=== PATIENT | male | born 1950 | race Caucasian/White ===

== ENCOUNTER 2017-09-06 02:55 | Emergency (ER) | payer MEDICAID, MEDICARE ==
[~2017-09-06] VITALS: Ht 177.8 cm; Wt 115.0 kg
[2017-09-06 04:49] VITALS: BP 128/74; PULSE 94; RESP 20; TEMP 98.5; O2SAT 95
[2017-09-07] MEDS ORDERED: ALPR.5 PO (15:25)
[2017-09-07] MEDS ORDERED: ASPI-516 CHEW (15:25)
[2017-09-07] MEDS ORDERED: NEUR300C PO (15:25)
[2017-09-07] MEDS ORDERED: SEVEL800 PO ×2 (15:25)
[2017-09-07] MEDS ORDERED: FAMO1TAB73 PO (15:25)
[2017-09-07] MEDS ORDERED: PERC5TAB12 PO (15:26)
== END 2017-09-06 03:00 | disposition home or self-care (01) ==
LOC: NEPE 02:55
DX: T80.89XA Other complications following infusion, transfusion and therapeutic injection, initial encounter (principal)
CPT/HCPCS: 99281

== ENCOUNTER 2017-09-06 07:14 | Emergency (ER) | payer MEDICARE ==
[~2017-09-06] VITALS: Ht 177.8 cm; Wt 130.0 kg
[2017-09-06 07:24] VITALS: BP 121/72; PULSE 93; RESP 16; O2SAT 94
--- NOTE | 2017-09-06 07:37 | PD ---
HPI Chief Complaint: Hide Paster Problem Time Seen by Provider: 07:22 Travel History International Travel<30 days: No Contact w/Intl Traveler<30days: No Traveled to known affect area: No History of Present Illness HPI 67-year-old male complains of bleeding from AV fistula site on the left arm. Patient has history of end-stage renal disease on dialysis. Patient states that he started having bleeding from the left arm since yesterday. Patient was seen in emergency room last night. Dressing was applied and patient was discharged. Patient went to dialysis morning and started having bleeding from the left arm again. Patient was sent to ED for evaluation. [facility] Past Medical History Anemia: Yes Diabetes: Yes Patient Takes Glucophage: Yes Hepatitis: Yes (C) Implanted Vascular Access Dvce: Yes Immunizations Current: Yes Renal Failure: Yes Tetanus Vaccination: Unknown Influenza Vaccination: Yes Social History Alcohol Use: No Tobacco Use: No Substance Use: No Allergies-Medications (Allergen,Severity, Reaction): Coded Allergies: No Known Allergies (Unverified , 09/06/17) Review of Systems General / Constitutional: No: Fever Eyes: No: Visual changes HENT: No: Headaches Cardiovascular: No: Chest Pain or Discomfort Respiratory: No: Shortness of Breath Gastrointestinal: No: Abdominal Pain Genitourinary: No: Dysuria Musculoskeletal: No: Pain Skin: No Rash Neurologic: No: Weakness Psychiatric: No: Depression Endocrine: No: Polydipsia Hematologic/Lymphatic: No: Easy Bruising Physical Exam Narrative GENERAL: Well-nourished, well-developed patient. SKIN: Focused skin assessment warm/dry. HEAD: Normocephalic. EYES: No scleral icterus. No injection or drainage. NECK: Supple, trachea midline. No JVD or lymphadenopathy. CARDIOVASCULAR: Regular rate and rhythm without murmurs, gallops, or rubs. RESPIRATORY: Breath sounds equal bilaterally. No accessory muscle use. GASTROINTESTINAL: Abdomen soft, non-tender, nondistended. MUSCULOSKELETAL: Patient has a small hole with minor bleeding at the left arm AV fistula site. BACK: Nontender without obvious deformity. No CVA tenderness. Neurologic exam normal. Data Data Last Documented VS Vital Signs Date Time Temp Pulse Resp B/P (MAP) Pulse Ox O2 Delivery O2 Flow Rate FiO2 09/06/17 07:24 92 16 95 Room Air 09/06/17 07:24 121/72 (88) [facility] Medical Decision Making Medical Screen Exam Complete: Yes Emergency Medical Condition: Yes Differential Diagnosis Differential diagnosis including bleeding from AV fistula site. Narrative Course 67-year-old male with bleeding from AV fistula site on the left arm. History of end-stage renal disease on dialysis. Procedures Procedure Narrative WoundSeal powder applied to the site. Bleeding stopped. Diagnosis Primary Impression: Hemorrhage of arteriovenous fistula Qualified Codes: T82.838A - Hemorrhage due to vascular prosthetic devices, implants and grafts, initial encounter Patient Instructions: General Instructions Additional Instructions: Follow-up with personal physician. Med/Other Pt SpecificInfo: No Change to Meds Disposition: 01 DISCHARGE HOME Condition: Stable Adrián Rosa MD Sep 06, 2017 07:37
[2017-09-06] MEDS ORDERED: ONDANSETRON ODT 4 MG TAB PO ONE (08:00)
[2017-09-07] MEDS ORDERED: SEVEL800 PO ×2 (15:25)
[2017-09-07] MEDS ORDERED: FAMO1TAB73 PO (15:25)
[2017-09-07] MEDS ORDERED: ALPR.5 PO (15:25)
[2017-09-07] MEDS ORDERED: NEUR300C PO (15:25)
[2017-09-07] MEDS ORDERED: ASPI-516 CHEW (15:25)
[2017-09-07] MEDS ORDERED: PERC5TAB12 PO (15:26)
== END 2017-09-06 08:29 | disposition home or self-care (01) ==
LOC: NEPC 07:14
DX: T82.838A Hemorrhage due to vascular prosthetic devices, implants and grafts, initial encounter (principal); N18.6 End stage renal disease; E11.9 Type 2 diabetes mellitus without complications; Z99.2 Dependence on renal dialysis; Z79.84 Long term (current) use of oral hypoglycemic drugs; Z86.2 Personal history of diseases of the blood and blood-forming organs and certain disorders involving the immune mechanism; Z86.19 Personal history of other infectious and parasitic diseases
CPT/HCPCS: 99283

== ENCOUNTER 2017-09-07 14:09 | Inpatient (IN) | payer MEDICARE ==
[~2017-09-07] VITALS: Ht 177.8 cm; Wt 136.7 kg
[~2017-09-07 14:09] MED LIST: DEXAMETHASONE SOD PHOS 4 MG/ML VIAL IV ONE; HEPARIN SODIUM - SQ 10,000 UNITS/ML VIAL OTHER ONE; LIDOCAINE HCL 1% PF 5 ML SYRINGE OTHER ONE; ONDANSETRON HCL 4 MG/2 ML VIAL IV PUSH ONE; PHENYLEPH/NS 1000 MCG/10 ML SYR IV ONE; PROPOFOL 200 MG/20 ML AMP IV ONE; ROCURONIUM INJ 50 MG/5 ML SYRINGE IV PUSH ONE; SUCCINYLCHOLINE CHLORIDE 100 MG/5 ML SYRINGE IV PUSH ONE; ePHEDrine/NS 25 MG/5 ML SYR IV ONE
[2017-09-07 14:21] VITALS: PULSE 95; RESP 20; TEMP 98.7; O2SAT 100
[2017-09-07 14:34] VITALS: BP 139/68; PULSE 94; RESP 18; RESP 20; TEMP 98.3; O2SAT 100
--- NOTE | 2017-09-07 14:40 | PD ---
HPI Chief Complaint: Bleeding Time Seen by Provider: 14:28 Travel History International Travel<30 days: No Contact w/Intl Traveler<30days: No Traveled to known affect area: No History of Present Illness HPI 67-year-old male with history of end-stage renal renal disease, on dialysis, AV fistula left arm, presents via EMS for evaluation of bleeding from AV fistula site. Symptoms initially started yesterday after forcefully coughing. He was seen here, the bleeding was controlled, discharge. Had dialysis yesterday, another bleeding episode occurred and he was seen here again. Once it was applied and the bleeding was controlled. He reports that he woke up this morning and had another bleeding episode, paramedics were able to apply pressure dressing. The bleeding returned for the fourth time this afternoon with pulsating of blood per EMS. A pressure dressing was applied. The patient is complaining of lightheadedness, nausea, dizziness. He reports that this is never happened in the past. He takes aspirin, no other anticoagulants. 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 No other complaints. [facility] Past Medical History Anemia: Yes Diabetes: Yes Hepatitis: Yes (C) Implanted Vascular Access Dvce: Yes Immunizations Current: Yes Renal Failure: Yes Social History Alcohol Use: No Tobacco Use: No Substance Use: No Allergies-Medications (Allergen,Severity, Reaction): Coded Allergies: No Known Allergies (Unverified , 09/06/17) Reported Meds & Prescriptions Reported Meds & Active Scripts Active Reported Percocet (Oxycodone-Acetaminophen) 5-325 mg Tab 1 Tab PO Q4H PRN Xanax (Alprazolam) 0.5 Mg Tab 0.5 Mg PO Q4H PRN Pepcid (Famotidine) 40 Mg Tab 40 Mg PO DAILY Aspirin 81 Mg Chew 81 Mg CHEW DAILY Renvela (Sevelamer Carbonate) 800 Mg Tab 3,200 Mg PO TIDPC Renvela (Sevelamer Carbonate) 800 Mg Tab 2,400 Mg PO QID QID WITH SNACKS Neurontin (Gabapentin) 300 Mg Cap 300 Mg PO DAILY Review of Systems Except as stated in HPI: all other systems reviewed are Neg Physical Exam Narrative GENERAL: Well-developed well-nourished male in no acute distress SKIN: Warm, moist. HEAD: Atraumatic. Normocephalic. EYES: Pupils equal and round. No scleral icterus. No injection or drainage. ENT: No nasal bleeding or discharge. Mucous membranes pink and moist. NECK: Trachea midline. No JVD. CARDIOVASCULAR: Regular rate and rhythm. No murmur appreciated. RESPIRATORY: No accessory muscle use. Clear to auscultation. Breath sounds equal bilaterally. GASTROINTESTINAL: Abdomen soft, non-tender, nondistended. Hepatic and splenic margins not palpable. MUSCULOSKELETAL: Examination of the left arm reveals AV fistula with what appears to be a hematoma which is oozing a little bit of blood. No pulsating blood. NEUROLOGICAL: Awake and alert. No obvious cranial nerve deficits. Motor grossly within normal limits. Normal speech. PSYCHIATRIC: Appropriate mood and affect; insight and judgment normal. Data Data Last Documented VS Vital Signs Date Time Temp Pulse Resp B/P (MAP) Pulse Ox O2 Delivery O2 Flow Rate FiO2 09/07/17 15:26 89 16 129/68 (88) 95 Room Air 09/07/17 14:34 98.3 Orders Orders Type And Screen (09/07/17 14:26) Basic Metabolic Panel (Bmp) (09/07/17 14:26) Complete Blood Count With Diff (09/07/17 14:26) Prothrombin Time / Inr (Pt) (09/07/17 14:26) Act Partial Throm Time (Ptt) (09/07/17 14:26) Iv Access Insert/Monitor (09/07/17 14:26) Ecg Monitoring (09/07/17 14:26) Oximetry (09/07/17 14:26) Electrocardiogram (09/07/17 ) Consult Vascular Surgery (09/07/17 ) Protamine Sulfate Inj (Protamine Sulfate (09/07/17 15:21) Heparin Inj (Heparin Inj) (09/07/17 15:21) Thrombin Top [place] (Thrombin Top [place]) (09/07/17 15:21) Heparin-Ns/Pf Inj (Heparin-Ns/Pf Inj) (09/07/17 15:21) Cefazolin 2 Gm Premix (Ancef 2 Gm Premix (09/07/17 15:21) Admit Order (Ed Use Only) (09/07/17 15:40) Labs Laboratory Tests Test 09/07/17 14:35 White Blood Count 15.5 TH/MM3 Red Blood Count 5.03 MIL/MM3 Hemoglobin 15.0 GM/DL Hematocrit 46.7 % Mean Corpuscular Volume 92.7 FL Mean Corpuscular Hemoglobin 29.8 PG Mean Corpuscular Hemoglobin Concent 32.2 % Red Cell Distribution Width 19.3 % Platelet Count 182 TH/MM3 Mean Platelet Volume 7.9 FL Neutrophils (%) (Auto) 82.6 % Lymphocytes (%) (Auto) 6.5 % Monocytes (%) (Auto) 9.7 % Eosinophils (%) (Auto) 0.7 % Basophils (%) (Auto) 0.5 % Neutrophils # (Auto) 12.8 TH/MM3 Lymphocytes # (Auto) 1.0 TH/MM3 Monocytes # (Auto) 1.5 TH/MM3 Eosinophils # (Auto) 0.1 TH/MM3 Basophils # (Auto) 0.1 TH/MM3 CBC Comment DIFF FINAL Differential Comment Prothrombin Time 11.5 SEC Prothromb Time International Ratio 1.0 RATIO Activated Partial Thromboplast Time 30.1 SEC Blood Urea Nitrogen 33 MG/DL Creatinine 8.34 MG/DL Random Glucose 94 MG/DL Calcium Level 9.3 MG/DL Sodium Level 133 MEQ/L Potassium Level 4.3 MEQ/L Chloride Level 101 MEQ/L Carbon Dioxide Level 21.4 MEQ/L Anion Gap 11 MEQ/L Estimat Glomerular Filtration Rate 6 ML/MIN MDM Medical Decision Making Medical Screen Exam Complete: Yes Emergency Medical Condition: Yes Medical Record Reviewed: Yes Differential Diagnosis Hematoma, pseudoaneurysm, thrombosis, uncontrollable bleeding, hypovolemia, hemorrhagic anemia Narrative Course I discussed the case with on-call for Dr. Montiel the vascular surgeon and they will come and evaluate the patient. The patient is currently hemodynamically stable. Pressure dressing has been reapplied after evaluation. Plan is for basic lab work, type and screen, ECG monitor and pulse oximetry. 1450: Dr. Montiel at bedside, he plans on taking the patient emergently to surgery to repair the malfunctioning AV fistula. Would like the patient admitted to the medicine team. Patient is agreeable. Diagnosis Primary Impression: Dialysis AV fistula malfunction Qualified Codes: T82.590D - Other mechanical complication of surgically created arteriovenous fistula, subsequent encounter Additional Impression: Hemorrhage of arteriovenous fistula Qualified Codes: T82.838D - Hemorrhage due to vascular prosthetic devices, implants and grafts, subsequent encounter Admitting Information Admitting Physician Requests: Aman Fernandez Sep 07, 2017 14:40
--- NOTE | 2017-09-07 15:08 | PD.VS.CON ---
History of Present Illness Chief Complaint: bleeding L UE AVF Consult Requested by: ED History of Present Illness 67 yo male with ESRD who had L UE AVF placed 6 years ago, getting HD TTS but got HD yesterday because of impending holiday, who presents with bleeding L UE AVF. Has bled x 4 over past 24-48 hours and he has been in ED three times according to the patient. HD yesterday was full run with no problems. Past/Family/Social History Past Medical History ESRD HTN Past Surgical History L UE AVF (hilario) - failed L UE AVF 6 y ago Social History nonsmoker Family History NC Coded Allergies: No Known Allergies (Unverified , 09/06/17) Review of Systems Constitutional: DENIES: Chills Cardiovascular: COMPLAINS OF: Lower Extremity Edema, DENIES: Chest pain Physical Exam Vitals/I&O Date Time Temp Pulse Resp B/P (MAP) Pulse Ox O2 Delivery O2 Flow Rate FiO2 09/07/17 14:34 98.3 94 18 139/68 (91) 100 Room Air 09/07/17 14:34 20 100 Room Air 09/07/17 14:34 94 20 100 Room Air 09/07/17 14:21 98.7 95 20 100 Neuro: alert, oriented, conversant HEENT: NC/AT Neck: no JVD Heart: reg rate Lungs: clear Abdomen: obese, NT Vascular: L UE with + thrill. Erythema and skin breakdown over mid-AVF Good L UE strength Assessment and Plan Plan Emergent OR for L UE bleeding pseudoaneurysm Will adm to medical service post-op Discussed with patient - will try to preserve as much access as possible for HD Oscar Monteil MD FACS RPV[employer] bench worker [facility] - [facility] V[facility] Surgery at [facility] [phone] Oscar Montiel MD Sep 07, 2017 15:08
[2017-09-07] MEDS ORDERED: PROTAMINE SULFATE 50 MG/5 ML VIAL ONE (15:21)
[2017-09-07] MEDS ORDERED: THROMBIN (TOPICAL) 20,000 UNIT SPRAY KIT ONE (15:21)
[2017-09-07] MEDS ORDERED: HEPARIN SODIUM - IV 10,000 UNITS/10 ML VIAL ONE (15:21)
[2017-09-07] MEDS ORDERED: HEPARIN-NS/PF INJ 500 ML ONE (15:21)
[2017-09-07] MEDS ORDERED: ceFAZolin 2 GM PREMIX 0 ML ONE (15:21)
[2017-09-07] MEDS ORDERED: FAMO1TAB73 PO (15:25)
[2017-09-07] MEDS ORDERED: ASPI-516 CHEW (15:25)
[2017-09-07] MEDS ORDERED: ALPR.5 PO (15:25)
[2017-09-07] MEDS ORDERED: NEUR300C PO (15:25)
[2017-09-07] MEDS ORDERED: SEVEL800 PO ×2 (15:25)
[2017-09-07 15:26] VITALS: BP 129/68; PULSE 89; RESP 16; O2SAT 95
[2017-09-07] MEDS ORDERED: PERC5TAB12 PO (15:26)
[2017-09-07 15:27] LABS: AUTOMATED NEUTROPHIL # 12.8 TH/MM3 (1.8-7.7); BASOPHIL # 0.1 TH/MM3 (0-0.2); BASOPHIL % 0.5 % (0.0-2.0); EOSINOPHIL # 0.1 TH/MM3 (0-0.4); EOSINOPHIL % 0.7 % (0.0-4.0); HEMATOCRIT 46.7 % (39.0-51.0); HEMO FLAGS DIFF FINAL; LYMPH % 6.5 % (9.0-44.0); MEAN CELL VOLUME 92.7 FL (80.0-100.0); MEAN CORPUSCULAR HEMOGLOBIN 29.8 PG (27.0-34.0); MEAN CORPUSCULAR HGB CONC 32.2 % (32.0-36.0); MONO % 9.7 % (0.0-8.0); NEUT % 82.6 % (16.0-70.0); PLATELET COUNT 182 TH/MM3 (150-450); RED BLOOD COUNT 5.03 MIL/MM3 (4.50-5.90); RED CELL DISTRIBUTION WIDTH 19.3 % (11.6-17.2); WHITE BLOOD COUNT 15.5 TH/MM3 (4.0-11.0)
[2017-09-07 15:33] LABS: APTT (PATIENT) 30.1 SEC (24.3-30.1); PROTHROMBIN TIME - PATIENT 11.5 SEC (9.8-11.6)
[2017-09-07 15:42] LABS: BICARBONATE 21.4 MEQ/L (21.0-32.0); POTASSIUM 4.3 MEQ/L (3.5-5.1)
[2017-09-07] MEDS ORDERED: VANCOMYCIN HCL 1000 MG VIAL ONE (15:57)
--- NOTE | 2017-09-07 16:24 | HHI.HP ---
HPI Service [facility] Primary Care Physician No Primary Care Physician Admission Diagnosis malfunctioning AV fistula, AV fistula bleeding Diagnoses: Chief Complaint: BLEEDINF LEFT UE AVF Travel History International Travel<30 Days: No Contact w/Intl Traveler <30 Da: No Traveled to Known Affected Are: No History of Present Illness 67 yo male with ESRD who had L UE AVF placed 6 years ago, getting HD TTS but got HD yesterday because of impending holiday, who presents with bleeding L UE AVF. Has bled x 4 over past 24-48 hours and he has been in ED three times according to the patient. HD yesterday was full run with no problems. Review of Systems Constitutional: DENIES: Diaphoretic episodes, Fatigue, Fever, Weight gain, Weight loss, Chills, Dizziness Endocrine: DENIES: Heat/cold intolerance, Polydipsia, Polyuria, Polyphagia Eyes: DENIES: Blurred vision, Diplopia, Eye inflammation Ears, nose, mouth, throat: DENIES: Tinnitus, Hearing loss, Vertigo Respiratory: DENIES: Apneas, Cough, Snoring Cardiovascular: DENIES: Chest pain, Palpitations, Syncope, Dyspnea on Exertion Gastrointestinal: DENIES: Abdominal pain, Black stools, Bloody stools Genitourinary: DENIES: Sexual dysfunction, Urinary frequency, Urinary incontinence Musculoskeletal: DENIES: Joint pain, Muscle aches, Stiffness, Joint Swelling Integumentary: DENIES: Abnormal pigmentation, Nail changes Hematologic/lymphatic: DENIES: Bruising, Lymphadenopathy Immunologic/allergic: DENIES: Eczema, Urticaria Neurologic: DENIES: Headache, Localized weakness Psychiatric: DENIES: Anxiety, Confusion, Mood changes Except as stated in HPI: all other systems reviewed are Neg Past Family Social History Past Medical History End-stage renal disease on hemodialysis Hypertension Obesity Chronic right foot fracture wears a boot for this chronically Anxiety Neuropathy Past Surgical History Left upper extremity AV fistula failed Left upper extremity AV fistula 6 years ago Reported Medications Reported Meds & Active Scripts Active Reported Percocet (Oxycodone-Acetaminophen) 5-325 mg Tab 1 Tab PO Q4H PRN Xanax (Alprazolam) 0.5 Mg Tab 0.5 Mg PO Q4H PRN Pepcid (Famotidine) 40 Mg Tab 40 Mg PO DAILY Aspirin 81 Mg Chew 81 Mg CHEW DAILY Renvela (Sevelamer Carbonate) 800 Mg Tab 3,200 Mg PO TIDPC Renvela (Sevelamer Carbonate) 800 Mg Tab 2,400 Mg PO QID QID WITH SNACKS Neurontin (Gabapentin) 300 Mg Cap 300 Mg PO DAILY Allergies: Coded Allergies: No Known Allergies (Unverified , 09/06/17) Active Ordered Medications Current Medications Protamine Sulfate (Protamine Sulfate Inj) 50 mg STK-MED ONCE .ROUTE ; Start at 15:21; Stop 09/07/17 at 15:22; Status DC Heparin Sodium (Porcine) (Heparin Inj) 10,000 units STK-MED ONCE .ROUTE ; Start 09/07/17 at 15:21; Stop 09/07/17 at 15:22; Status DC Thrombin (Thrombin Top [place]itro) 20,000 units STK-MED ONCE .ROUTE ; Start at 15:21; Stop 09/07/17 at 15:22; Status DC Heparin Sodium/ Sodium Chloride 500 ml @ As Directed STK-MED ONCE .ROUTE ; Start 09/07/17 at 15:21; Stop 09/07/17 at 15:22; Status DC Cefazolin Sodium/ Dextrose 50 ml @ As Directed STK-MED ONCE .ROUTE ; Start at 15:21; Stop 09/07/17 at 15:22; Status DC Family History Noncontributory at this time Hypertension Social History Denies any tobacco or alcohol or illicits Physical Exam Vital Signs Vital Signs Date Time Temp Pulse Resp B/P (MAP) Pulse Ox O2 Delivery O2 Flow Rate FiO2 09/07/17 15:48 09/07/17 15:26 89 16 129/68 (88) 95 Room Air 09/07/17 14:34 98.3 94 18 139/68 (91) 100 Room Air 09/07/17 14:34 20 100 Room Air 09/07/17 14:34 94 20 100 Room Air 09/07/17 14:21 98.7 95 20 100 Physical Exam GENERAL: This is a well-nourished, well-developed patient, in no apparent distress. SKIN: No rashes, ecchymoses or lesions. Cool and dry. Left upper extremity AV fistula dressed with good thrill and bruit HEAD: Atraumatic. Normocephalic. No temporal or scalp tenderness. EYES: Pupils equal round and reactive. Extraocular motions intact. No scleral icterus. No injection or drainage. ENT: Nose without bleeding, purulent drainage or septal hematoma. Throat without erythema, tonsillar hypertrophy or exudate. Uvula midline. Airway patent. NECK: Trachea midline. No JVD or lymphadenopathy. Supple, nontender, no meningeal signs. CARDIOVASCULAR: Regular rate and rhythm without murmurs, gallops, or rubs. RESPIRATORY: Clear to auscultation. Breath sounds equal bilaterally. No wheezes , rales, or rhonchi. GASTROINTESTINAL: Abdomen soft, non-tender, nondistended. No hepato-splenomegaly , or palpable masses. No guarding. Obese MUSCULOSKELETAL: Extremities without clubbing, cyanosis, or edema. No joint tenderness, effusion, or edema noted. No calf tenderness. Negative Homans sign bilaterally. Right lower extremity chronic fracture wears a boot NEUROLOGICAL: Awake and alert. Cranial nerves II through XII intact. Motor and sensory grossly within normal limits. Five out of 5 muscle strength in all muscle groups. Normal speech. Insight and judgment is good mood and behaviors appropriate Laboratory Laboratory Tests Test 09/07/17 14:35 White Blood Count 15.5 Red Blood Count 5.03 Hemoglobin 15.0 Hematocrit 46.7 Mean Corpuscular Volume 92.7 Mean Corpuscular Hemoglobin 29.8 Mean Corpuscular Hemoglobin Concent 32.2 Red Cell Distribution Width 19.3 Platelet Count 182 Mean Platelet Volume 7.9 Neutrophils (%) (Auto) 82.6 Lymphocytes (%) (Auto) 6.5 Monocytes (%) (Auto) 9.7 Eosinophils (%) (Auto) 0.7 Basophils (%) (Auto) 0.5 Neutrophils # (Auto) 12.8 Lymphocytes # (Auto) 1.0 Monocytes # (Auto) 1.5 Eosinophils # (Auto) 0.1 Basophils # (Auto) 0.1 CBC Comment DIFF FINAL Differential Comment Prothrombin Time 11.5 Prothromb Time International Ratio 1.0 Activated Partial Thromboplast Time 30.1 Blood Urea Nitrogen 33 Creatinine 8.34 Random Glucose 94 Calcium Level 9.3 Sodium Level 133 Potassium Level 4.3 Chloride Level 101 Carbon Dioxide Level 21.4 Anion Gap 11 Estimat Glomerular Filtration Rate 6 Result Diagram: 09/07/17143409/07/17 143 Caprini VTE Risk Assessment Caprini VTE Risk Assessment: Mod/High Risk (score >= 2) Caprini Risk Assessment Model Point Value = 1 Point Value = 2 Point Value = 3 Point Value = 5 Age 41-60 Minor surgery BMI > 25 kg/m2 Swollen legs Varicose veins or History of unexplained or recurrent spontaneous Oral contraceptives or hormone replacement Sepsis (< 1 month) Serious lung disease, including pneumonia (< 1 month) Abnormal pulmonary function Acute myocardial infarction Congestive heart failure (< 1 month) History of inflammatory bowel disease Medical patient at bed rest Age 61-74 Arthroscopic surgery Major open surgery (> 45 min) Laparoscopic surgery (> 45 min) Malignancy Confined to bed (> 72 hours) Immobilizing plaster cast Central venous access Age >= 75 History of VTE Family history of VTE Factor V Leiden Prothrombin [id number] Lupus anticoagulant Anticardiolipin antibodies Elevated serum homocysteine Heparin-induced thrombocytopenia Other congenital or acquired thrombophilia Stroke (< 1 month) Elective arthroplasty Hip, pelvis, or leg fracture Acute spinal cord injury (< 1 month) Prophylaxis Regimen Total Risk Factor Score Risk Level Prophylaxis Regimen 0-1 Low Early ambulation 2 Moderate Order ONE of the following: *Sequential Compression Device (SCD) *Heparin 5000 units SQ BID 3-4 Higher Order ONE of the following medications: *Heparin 5000 units SQ TID *Enoxaparin/Lovenox 40 mg SQ daily (WT < 150 kg, CrCl > 30 mL/min) *Enoxaparin/Lovenox 30 mg SQ daily (WT < 150 kg, CrCl > 10-29 mL/min) *Enoxaparin/Lovenox 30 mg SQ BID (WT < 150 kg, CrCl > 30 mL/min) AND/OR *Sequential Compression Device (SCD) 5 or more Highest Order ONE of the following medications: *Heparin 5000 units SQ TID (Preferred with Epidurals) *Enoxaparin/Lovenox 40 mg SQ daily (WT < 150 kg, CrCl > 30 mL/min) *Enoxaparin/Lovenox 30 mg SQ daily (WT < 150 kg, CrCl > 10-29 mL/min) *Enoxaparin/Lovenox 30 mg SQ BID (WT < 150 kg, CrCl > 30 mL/min) AND *Sequential Compression Device (SCD) Assessment and Plan Assessment and Plan Left upper extremity AV fistula with bleeding pseudoaneurysm to go for surgery today with Dr. Montiel End-stage renal disease on hemodialysis consult nephrology Neuropathy on chronic medications Anxiety chronic medications Hypertension home medications Pain control as needed To go to the OR today Code Status Full code Discussed Condition With Discussed with patient and RN and family Physician Certification 2 Midnight Certification Type: Admission for Inpatient Services Order for Inpatient Services The services are ordered in accordance with Medicare regulations or non- Medicare payer requirements, as applicable. In the case of services not specified as inpatient-only, they are appropriately provided as inpatient services in accordance with the 2-midnight benchmark. Estimated LOS (days): 2 2 days is the estimated time the patient will need to remain in the hospital, assuming treatment plan goals are met and no additional complications. Post-Hospital Plan: Not yet determined John Faria DO Sep 07, 2017 16:24
[2017-09-07] MEDS ORDERED: SENNOSIDES 8.6 MG TAB PO PRN (16:30)
[2017-09-07] MEDS ORDERED: LACTULOSE SYRUP 20 GM/30 ML CUP PO PRN (16:30)
[2017-09-07] MEDS ORDERED: MORPHINE SULFATE 4 MG/ML INJ IV PUSH PRN ×2 (16:30)
[2017-09-07] MEDS ORDERED: ALPRAZolam 0.5 MG TAB PO PRN (16:30)
[2017-09-07] MEDS ORDERED: oxyCODONE/ACETAMINOPHEN 5 MG/325 MG TAB PO PRN ×2 (16:30)
[2017-09-07] MEDS ORDERED: BISACODYL 10 MG SUPP RECTAL PRN (16:30)
[2017-09-07] MEDS ORDERED: SODIUM CHLORIDE 0.9% FLUSH 10 ML FLUSH IV FLUSH PRN ×2 (16:30→17:15)
[2017-09-07] MEDS ORDERED: MAGNESIUM HYDROXIDE SUSP 30 ML CUP PO PRN (16:30)
[2017-09-07] MEDS ORDERED: PROCHLORPERAZINE 25 MG SUPP RECTAL PRN (16:30)
[2017-09-07] MEDS ORDERED: ACETAMINOPHEN 325 MG TAB PO PRN ×3 (16:30→17:15)
[2017-09-07] MEDS ORDERED: cloNIDine HCL 0.1 MG TAB PO PRN ×2 (16:30→17:15)
[2017-09-07] MEDS ORDERED: ONDANSETRON HCL 4 MG/2 ML VIAL IVP PRN (16:30)
[2017-09-07] MEDS ORDERED: NALOXONE HCL 0.4 MG/ML AMP IV PUSH PRN (16:30)
[2017-09-07] MEDS ORDERED: BUPIVACAINE HCL PF 0.5% 30 ML VIAL ONE (16:33)
[2017-09-07] MEDS ORDERED: SODIUM CHLOR 0.9% 1000 ML INJ 1,000 ML IV PRN (17:04)
[2017-09-07] MEDS ORDERED: SODIUM CHLOR 0.9% 1000 ML INJ 1,000 ML OTHER PRN ×2 (17:04)
[2017-09-07] MEDS ORDERED: diphenhydrAMINE HCL 25 MG CAP PO PRN (17:15)
[2017-09-07] MEDS ORDERED: ONDANSETRON HCL 4 MG/2 ML VIAL IV PUSH PRN (17:15)
[2017-09-07] MEDS ORDERED: GENTAMICIN SULFATE (DIALYSIS USE ONLY) 20 MG/2 ML VIAL OTHER PRN (17:15)
[2017-09-07] MEDS ORDERED: HEPARIN SODIUM - IV 10,000 UNITS/10 ML VIAL IV FLUSH PRN (17:15)
[2017-09-07] MEDS ORDERED: GELATIN 12 MM/7 MM FOAM TOP PRN (17:15)
[2017-09-07] MEDS ORDERED: ALBUMIN 25% INJ 100 ML IV PRN (17:15)
[2017-09-07] MEDS ORDERED: NITROGLYCERIN 0.4 MG SL 25 TABS/BTL SL PRN (17:15)
[2017-09-07] MEDS ORDERED: MANNITOL 12.5 GM/50 ML VIAL IV PRN (17:15)
[2017-09-07] MEDS ORDERED: HEPARIN SODIUM - IV 10,000 UNITS/10 ML VIAL PRN (17:15)
--- NOTE | 2017-09-07 17:18 | HHI.PR ---
cc: Pineda Hart MD Immediate Post Op Note Procedure Date: Sep 07, 2017 Pre Op Diagnosis: bleeding L AVF pseudoaneurysm Post Op Diagnosis: bleeding L AVF pseudoaneurysm Surgeon: Oscar Montiel Social Science Research Assistant(s): Candace Soto Procedure: L UE access revision (6mm interposition PTFE) Findings: active bleeding pseudoaneurysm Additional Information: after repair, + thrill and good Doppler signals Complications: none Specimen(s) removed: none for pathology Estimated blood loss: 300mL Anesthesia: General Drains: None Fluids: 500mL IVF Patient to: PACU Patient Condition: Good Implant/Devices: SEE IMPLANT LOG (if applicable) Date/Time of Procedure: SEE SURGICAL CARE RECORD Oscar Montiel MD Sep 07, 2017 17:18
[2017-09-07] MEDS ORDERED: HYDROmorphone HCL 2 MG TAB PO PRN (17:30)
[2017-09-07] MEDS ORDERED: MORPHINE SULFATE 2 MG/ML INJ IV PRN (17:45)
[2017-09-07] MEDS ORDERED: SODIUM CHLORIDE 0.9% INJ 10 ML ONE (18:01)
[2017-09-07] MEDS ORDERED: *ONDANSETRON 4 MG VIAL PERIprocedural Use ONLY ONE (18:04)
[2017-09-07] MEDS ORDERED: ePHEDrine/NS 25 MG/5 ML SYR ONE (18:17)
[2017-09-07] MEDS ORDERED: PHENYLEPHRINE HCL 10 MG/ML VIAL ONE (18:18)
[2017-09-07] MEDS ORDERED: DO NOT ADM ANY ANTICOAGULANT DRUGS PRN (18:30)
[2017-09-07] MEDS ORDERED: SEVELAMER CARBONATE 800 MG TAB PO SCH (18:30)
[2017-09-07 19:05] LABS: AUTOMATED NEUTROPHIL # 11.9 TH/MM3 (1.8-7.7); BASOPHIL # 0.1 TH/MM3 (0-0.2); BASOPHIL % 0.4 % (0.0-2.0); EOSINOPHIL # 0.1 TH/MM3 (0-0.4); EOSINOPHIL % 0.6 % (0.0-4.0); HEMATOCRIT 42.3 % (39.0-51.0); HEMO FLAGS DIFF FINAL; LYMPH % 6.9 % (9.0-44.0); MEAN CELL VOLUME 92.8 FL (80.0-100.0); MEAN CORPUSCULAR HEMOGLOBIN 29.6 PG (27.0-34.0); MEAN CORPUSCULAR HGB CONC 31.8 % (32.0-36.0); MONO % 9.5 % (0.0-8.0); NEUT % 82.6 % (16.0-70.0); PLATELET COUNT 175 TH/MM3 (150-450); RED BLOOD COUNT 4.55 MIL/MM3 (4.50-5.90); RED CELL DISTRIBUTION WIDTH 19.3 % (11.6-17.2); WHITE BLOOD COUNT 14.4 TH/MM3 (4.0-11.0)
[2017-09-07 19:10] LABS: BICARBONATE 23.1 MEQ/L (21.0-32.0)
[2017-09-07] MEDS ORDERED: TERBUTALINE INJ 1 MG/ML AMP SQ PRN (20:15)
[2017-09-07 20:20] VITALS: BP 105/57; PULSE 66; RESP 21; TEMP 98.7; O2SAT 98
[2017-09-07 21:00] VITALS: BP_SYST 101; BP_SYST 105; BP_DIAS 57; BP_DIAS 61; PULSE 64; PULSE 66; RESP 21; TEMP 98.1; TEMP 98.7; O2SAT 97; O2SAT 98
[2017-09-07] MEDS: DOCUSATE SODIUM 50 MG/SENNA 8.6 MG TAB PO SCH (21:49)
[2017-09-07 22:00] VITALS: BP_SYST 101; BP_SYST 103; BP_DIAS 57; BP_DIAS 61; PULSE 64; PULSE 70; RESP 21; RESP 27; TEMP 98.1; O2SAT 97; O2SAT 98
--- NOTE | 2017-09-07 23:06 | PD.CONS ---
[facility] Service Critical Care Medicine Consult Requested By Dr. Montiel Reason for Consult Medical management Primary Care Physician No Primary Care Physician History of Present Illness 67 yo Male with PMH of end-stage renal disease on hemodialysis for the last 6 years via left upper extremity AV fistula that has been in place for the same period of time under the care of Dr. Yomi Hart. He typically undergoes HD on a MWF schedule but his schedule was altered this week due to the . He states on Thursday 09/06 he woke up in a pool of blood with blood pulsating form his arm. He was brought to the ED and hemostasis was achieved. He went to dialysis that day and again had bleeding and it was controlled in the ED again and then he returned to dialysis where he states he received his full treatment on Thu. He then had an additional episode on Thursday morning and paramedics applied a pressure dressing. Later he had a fourth episode of pulsatile bleeding and was again brought to the ED where vascular surgery consultation was obtained. He has now undergone repair of pseudo aneurysm and AVF revision by Dr. Montiel. He received 500 crystalloid. EBL intraoperatively was 300 mL. Preoperative hemoglobin is 15. He has not received any blood transfusions through the course of these events. He was hypotensive in PACU and was started on neosynephrine at 100 mcg/min. [facility] has been consulted to assist with medical management postoperatively. Patient complains of some tenderness at the surgical site. He is also anxious that it will bleed again and therefore says he is having some difficulty falling asleep. Remainder of review of systems negative. Denies CP or SOB Review of Systems Constitutional: DENIES: Fever Ears, nose, mouth, throat: DENIES: Epistaxis Respiratory: DENIES: Shortness of breath Cardiovascular: DENIES: Chest pain Gastrointestinal: DENIES: Abdominal pain, Nausea, Vomiting Musculoskeletal: DENIES: Joint pain Hematologic/lymphatic: DENIES: Bruising Psychiatric: COMPLAINS OF: Anxiety Past Family Social History Allergies: Coded Allergies: No Known Allergies (Unverified , 09/06/17) Past Medical History ESRD Peripheral neuropathy Blood pressure "runs low". He was previously on midodrine but it has been discontinued Obesity Anxiety Past Surgical History Left upper extremity AV fistula placed 6 years ago currently. He states they initially tried in his L forearm unsuccessfully and the fistula was then accomplished in his left upper arm. Amputation of the second digit on right toe due to osteomyelitis Reported Medications Aspirin 81 mg by mouth daily Percocet 5/325 one by mouth every 4 hours as needed for pain Neurontin 3 mg by mouth daily Xanax 0.5 mill grams by mouth every 4 hours as needed for anxiety Renvela 2400 mg by mouth 4 times a day with snacks. Renvela 3200 mg by mouth 3 times a day. Pepcid 40 mill grams by mouth daily Family History His father and his brother both had ESRD Social History Lifetime nonsmoker No alcohol or illicit drug use Retired second helper Physical Exam Vital Signs Vital Signs Date Time Temp Pulse Resp B/P (MAP) Pulse Ox O2 Delivery O2 Flow Rate FiO2 09/07/17 20:20 98.7 66 21 105/57 (73) 98 09/07/17 20:15 98.4 72 18 106/59 (75) 97 Nasal Cannula 2 09/07/17 20:00 70 18 103/58 (73) 97 Nasal Cannula 2 09/07/17 19:45 74 19 101/58 (72) 98 Nasal Cannula 2 09/07/17 19:30 74 19 101/58 (72) 98 Nasal Cannula 2 09/07/17 19:15 73 19 98/61 (73) 98 Nasal Cannula 2 09/07/17 19:00 72 19 105/61 (76) 98 Nasal Cannula 2 09/07/17 18:45 78 19 95/53 (67) 98 Nasal Cannula 2 09/07/17 18:40 78 19 97/52 (67) 98 Nasal Cannula 3 09/07/17 18:35 80 19 90/53 (65) 98 Nasal Cannula 3 09/07/17 18:30 80 19 116/58 (77) 98 Nasal Cannula 3 09/07/17 18:25 91 19 107/59 (75) 96 Nasal Cannula 3 09/07/17 18:20 93 19 76/43 (54) 96 Nasal Cannula 3 09/07/17 18:15 90 19 62/42 (49) 97 Nasal Cannula 3 09/07/17 18:00 87 16 77/51 (60) 97 Nasal Cannula 3 09/07/17 17:54 93 16 74/50 (58) 96 Nasal Cannula 3 09/07/17 17:49 98.5 95 16 70/51 (57) 93 Nasal Cannula 3 09/07/17 15:48 11/20/17 15:26 89 16 129/68 (88) 95 Room Air 09/07/17 14:34 98.3 94 18 139/68 (91) 100 Room Air 09/07/17 14:34 20 100 Room Air 09/07/17 14:34 94 20 100 Room Air 09/07/17 14:21 98.7 95 20 100 Physical Exam GENERAL: Well-nourished, well-developed obese male who is sitting up in ISC bed. SKIN: Warm and dry. HEAD: Atraumatic. Normocephalic. EYES: Pupils equal and round. No scleral icterus. No injection or drainage. ENT: No nasal bleeding or discharge. Mucous membranes pink and moist. NECK: Trachea midline. No JVD. CARDIOVASCULAR: Regular rate and rhythm. No murmurs rubs or gallops. RESPIRATORY: He is breathing comfortably with no accessory muscle use on 2 L nasal cannula. Breath sounds equal bilaterally. No wheezes Rales or rhonchi. GASTROINTESTINAL: Abdomen soft, non-tender, nondistended. Bowel sounds present. MUSCULOSKELETAL: Extremities without clubbing, cyanosis, or edema. Left upper extremity is in francis wrap. Left radial pulse is weak but palpable. He has good shank carrier strength. He reports decreased sensation in his fingers consistent with his prior peripheral neuropathy but nothing worse than baseline. There is a palpable and audible thrill in his left upper arm. NEUROLOGICAL: Awake and alert. No obvious cranial nerve deficits. Motor grossly within normal limits, normal shank carrier strength as per above. Normal speech. Laboratory Laboratory Tests Test 09/07/17 14:35 09/07/17 18:28 White Blood Count 15.5 14.4 Red Blood Count 5.03 4.55 Hemoglobin 15.0 13.5 Hematocrit 46.7 42.3 Mean Corpuscular Volume 92.7 92.8 Mean Corpuscular Hemoglobin 29.8 29.6 Mean Corpuscular Hemoglobin Concent 32.2 31.8 Red Cell Distribution Width 19.3 19.3 Platelet Count 182 175 Mean Platelet Volume 7.9 8.2 Neutrophils (%) (Auto) 82.6 82.6 Lymphocytes (%) (Auto) 6.5 6.9 Monocytes (%) (Auto) 9.7 9.5 Eosinophils (%) (Auto) 0.7 0.6 Basophils (%) (Auto) 0.5 0.4 Neutrophils # (Auto) 12.8 11.9 Lymphocytes # (Auto) 1.0 1.0 Monocytes # (Auto) 1.5 1.4 Eosinophils # (Auto) 0.1 0.1 Basophils # (Auto) 0.1 0.1 CBC Comment DIFF FINAL DIFF FINAL Differential Comment Prothrombin Time 11.5 Prothromb Time International Ratio 1.0 Activated Partial Thromboplast Time 30.1 Blood Urea Nitrogen 33 34 Creatinine 8.34 8.36 Random Glucose 94 141 Calcium Level 9.3 8.7 Sodium Level 133 136 Potassium Level 4.3 5.0 Chloride Level 101 101 Carbon Dioxide Level 21.4 23.1 Anion Gap 11 12 Estimat Glomerular Filtration Rate 6 6 Result Diagram: 09/07/17182709/07/171827 Assessment and Plan Problem List: (1) ESRD (end stage renal disease) ICD Code: N18.6 - End stage renal disease Status: Chronic (2) Hypotension ICD Code: I95.9 - Hypotension, unspecified Status: Acute (3) Leukocytosis ICD Code: D72.829 - Elevated white blood cell count, unspecified Status: Acute (4) Hemorrhage of arteriovenous fistula ICD Code: T82.838A - Hemorrhage due to vascular prosthetic devices, implants and grafts, initial encounter Status: Acute (5) GERD (gastroesophageal reflux disease) ICD Code: K21.9 - Gastro-esophageal reflux disease without esophagitis Status: Chronic (6) Morbid obesity with BMI of 40.0-44.9, adult ICD Code: E66.01 - Morbid (severe) obesity due to excess calories; Z68.41 - Body mass index (BMI) 40.0-44.9, adult Status: Chronic (7) Anxiety ICD Code: F41.9 - Anxiety disorder, unspecified Status: Chronic (8) Peripheral neuropathy ICD Code: G62.9 - Polyneuropathy, unspecified Status: Chronic Assessment and Plan NEURO: Peripheral neuropathy Anxiety Continue Neurontin 300 g by mouth daily Continue Xanax 0.5 mg by mouth every 4 hours as needed RESP: Nasal cannula wean as tolerated. IS every hour awake. Then increase mobility. CV: Hypotension. Patient states he has intermittent hypotension at baseline and has been on midodrine in the past so likely has underlying autonomic neuropathy. However, appears has intravascular depletion. Received 500 crystalloid intraop. Lungs are clear. Will give albumin 25 gram IV. Checked CBC and Hgb is 13.5 Neosynephrine weaned to 50 mcg/min, continue to wean as tolerated. Continue aspirin 81 daily GI: GERD Obesity Continue Pepcid 20 mg daily FEN/RENAL: ESRD HD per nephrology, Dr. Hart Continue Renvela Bleeding left upper extremity pseudoaneurysm - Status post AV fistula revision, 09/07/17 (Dr. Montiel) ID: Received perioperative vancomycin. Monitor for signs and symptoms of infection. HEME: Checked postop CBC which was 13.5. ENDO: Mild stress hyperglycemia secondary to acute blood loss and surgery. Monitor and initiate low-dose insulin sliding scale as indicated PROPH: Initiate heparin subcutaneous for DVT prophylaxis in a.m. if okay with Dr. Montiel. Pepcid 20 mill grams daily for GERD/stress ulcer prophylaxis ACCESS: Peripheral IV providing adequate access at this time. Level 3 Consult. Problem Qualifiers (1) Hemorrhage of arteriovenous fistula: Qualified Codes: T82.838D - Hemorrhage due to vascular prosthetic devices, implants and grafts, subsequent encounter Dayana Chairez MD Sep 07, 2017 23:06
[2017-09-08] VITALS (14 sets, daily range): BP systolic 90–112; BP diastolic 54–66; PULSE 48–74; RESP 14–28; TEMP 97.6–98.5; O2SAT 94–100
[2017-09-08] MEDS ORDERED: ALBUMIN 25% INJ 50 ML IV ONE (02:00)
[2017-09-08] MEDS: PHENYLEPHRINE 40 MG in D5W 500 ML IV PRN ×2 (04:17→17:43)
[2017-09-08 04:23] LABS: AUTOMATED NEUTROPHIL # 17.5 TH/MM3 (1.8-7.7); BASOPHIL % 0.2 % (0.0-2.0); HEMATOCRIT 42.9 % (39.0-51.0); HEMO FLAGS DIFF FINAL; LYMPH % 4.6 % (9.0-44.0); LYMPHOCYTE # 0.9 TH/MM3 (1.0-4.8); MEAN CELL VOLUME 92.4 FL (80.0-100.0); MEAN CORPUSCULAR HEMOGLOBIN 28.8 PG (27.0-34.0); MEAN CORPUSCULAR HGB CONC 31.2 % (32.0-36.0); MONO % 5.8 % (0.0-8.0); NEUT % 89.4 % (16.0-70.0); PLATELET COUNT 220 TH/MM3 (150-450); RED BLOOD COUNT 4.64 MIL/MM3 (4.50-5.90); RED CELL DISTRIBUTION WIDTH 19.1 % (11.6-17.2); WHITE BLOOD COUNT 19.6 TH/MM3 (4.0-11.0)
[2017-09-08 04:34] LABS: ALKALINE PHOSPHATASE 73 U/L (45-117); ALT (GPT) 12 U/L (12-78); ANION GAP 14 MEQ/L (5-15); AST (GOT) 12 U/L (15-37); BICARBONATE 20.9 MEQ/L (21.0-32.0); BLOOD UREA NITROGEN 39 MG/DL (7-18); CHLORIDE 102 MEQ/L (98-107); FREE T4 1.12 NG/DL (0.76-1.46); GLOMERULAR FILTRATION RATE 6 ML/MIN (>89); MAGNESIUM 2.4 MG/DL (1.5-2.5); SODIUM (NA) 137 MEQ/L (136-145); TOTAL BILIRUBIN ADULT 0.5 MG/DL (0.2-1.0)
[2017-09-08 04:35] LABS: POTASSIUM 5.2 MEQ/L (3.5-5.1)
--- NOTE | 2017-09-08 07:42 | MP ---
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 PROCEDURE Left upper extremity access revision (interposition with 6 mm PTFE). ATTENDING SURGEON Kevin Montiel MD HANDKERCHIEF MAKER SURGEON Candace Soto ANESTHESIA General MEDICATIONS Mr. Montenegro is a gentleman who has a left upper extremity fistula. It has been off and on bleeding for several days and he presents to the emergency department carmen exsanguinating level of bleeding. He is taken to the operating room emergently. DESCRIPTION OF PROCEDURE Informed consent was obtained from the patient. He was taken to the operating room, placed supine on the operating table and an appropriate time-out was taken to ensure the patient's identity, operative site and planned procedure. The administration of a gram of vancomycin was initiated prior to the skin incision and will be discontinued after a single preoperative dose. Everyone in the room agreed with the time-out and we proceeded. Vancomycin was chosen because of the patient's end-stage renal disease. His left upper extremity was prepped and draped while manual pressure was held on the fistula. The incision was made at the base of the fistula down closer to the antecubital to provide inflow hemostasis. The incision was then deepened with electrocautery and the fistula was identified and encircled with a Vesseloop. When the Vesseloop was pulled up, there was adequate compression of the fistula so as there was no inflow bleeding. A separate incision made up by the shoulder, carried down through the subcutaneous tissue with electrocautery. The outflow of the fistula was identified and dissected free. This was noted to be somewhat sclerotic, but patent. The patient was then systemically heparinized with 3000 units of intravenous heparin. The incision was made connecting the two previous incisions and the pseudoaneurysm capsule was easily entered and fresh hematoma was evacuated. The entire area was extensively inflamed and the entire fistula was resected. A 6-mm PTFE was brought up on the field and sewn end-to-end proximally and distally with running 5-0 [place]-Erasto sutures. At the completion, it was flushed and noted to be hemostatic. There was a nice thrill in the fistula, Doppler signal in the wrist. The heparin was reversed with protamine. The wound was irrigated, made hemostatic with Surgicel and spray thrombin and the wound was closed with 2-0 Polysorb, 3-0 Polysorb and 3-0 nylon. The sponge and needle counts were correct at the end of the case. I was present, scrubbed and performed the entire procedure. MD KVNG Osborne/CLIFF /5:54 PM /7:37 AM
[2017-09-08] MEDS: DOCUSATE SODIUM 50 MG/SENNA 8.6 MG TAB PO SCH ×2 (08:51→21:10)
[2017-09-08] MEDS: SEVELAMER CARBONATE 800 MG TAB PO SCH ×4 (08:51→20:53)
[2017-09-08] MEDS: GABAPENTIN 300 MG CAP PO SCH (08:51)
[2017-09-08] MEDS: ASPIRIN 81 MG CHEW TAB CHEW SCH (08:52)
[2017-09-08] MEDS: SODIUM CHLORIDE 0.9% FLUSH 10 ML FLUSH IV FLUSH SCH ×2 (08:52→20:50)
[2017-09-08] MEDS: FAMOTIDINE 20 MG TAB PO SCH (08:52)
[2017-09-08] MEDS ORDERED: FAMOTIDINE 40 MG PO SCH (09:00)
--- NOTE | 2017-09-08 09:04 | PD.VS.PN ---
Subjective POD #: 1 Procedure(s): L UE AVF revision (interposition graft for bleeding pseudoaneurysm) Subjective/Hospital Course Pt with hypotension overnight but asymptomatic. On krzysztof gtt and looks great this morning. Hct ok. L UE pain controlled and hand ok Objective Vitals/I&O Date Time Temp Pulse Resp B/P (MAP) Pulse Ox O2 Delivery O2 Flow Rate FiO2 09/08/17 08:01 100 Nasal Cannula 2.00 09/08/17 08:00 98.2 60 16 112/66 (81) 96 09/08/17 08:00 60 09/08/17 07:00 60 09/08/17 07:00 97 Nasal Cannula 2.00 09/08/17 06:00 97.8 74 22 101/58 (72) 98 09/08/17 06:00 60 09/08/17 06:00 60 86/56 09/08/17 04:17 60 101/58 09/08/17 04:00 97.8 60 22 101/58 (72) 98 09/08/17 04:00 74 09/08/17 04:00 97.8 74 22 101/58 (72) 98 09/08/17 02:00 74 09/08/17 02:00 74 09/08/17 02:00 98.1 64 21 101/61 (74) 97 09/08/17 00:00 98.0 66 17 98/61 (73) 97 09/07/17 22:00 98.1 70 27 103/57 (72) 98 09/07/17 22:00 70 09/07/17 21:00 98.7 66 21 105/57 (73) 98 09/07/17 21:00 64 09/07/17 20:20 98.7 66 21 105/57 (73) 98 09/07/17 20:15 98.4 72 18 106/59 (75) 97 Nasal Cannula 2 09/07/17 20:00 70 18 103/58 (73) 97 Nasal Cannula 2 09/07/17 19:45 74 19 101/58 (72) 98 Nasal Cannula 2 09/07/17 19:30 74 19 101/58 (72) 98 Nasal Cannula 2 09/07/17 19:15 73 19 98/61 (73) 98 Nasal Cannula 2 09/07/17 19:00 72 19 105/61 (76) 98 Nasal Cannula 2 09/07/17 18:45 78 19 95/53 (67) 98 Nasal Cannula 2 09/07/17 18:40 78 19 97/52 (67) 98 Nasal Cannula 3 09/07/17 18:35 80 19 90/53 (65) 98 Nasal Cannula 3 09/07/17 18:30 80 19 116/58 (77) 98 Nasal Cannula 3 09/07/17 18:25 91 19 107/59 (75) 96 Nasal Cannula 3 09/07/17 18:20 93 19 76/43 (54) 96 Nasal Cannula 3 09/07/17 18:15 90 19 62/42 (49) 97 Nasal Cannula 3 09/07/17 18:00 87 16 77/51 (60) 97 Nasal Cannula 3 09/07/17 17:54 93 16 74/50 (58) 96 Nasal Cannula 3 09/07/17 17:49 98.5 95 16 70/51 (57) 93 Nasal Cannula 3 09/07/17 15:48 09/07/17 15:26 89 16 129/68 (88) 95 Room Air 09/07/17 14:34 98.3 94 18 139/68 (91) 100 Room Air 09/07/17 14:34 20 100 Room Air 09/07/17 14:34 94 20 100 Room Air 09/07/17 14:21 98.7 95 20 100 09/08/17 09/08/17 09/08/17 07:00 15:00 23:00 Intake Total 983 ml Output Total 0 ml Balance 983 ml Exam: L UE incision mildly ecchymotic + thrill hand with good strength Laboratory Laboratory Tests Test 09/07/17 14:35 09/07/17 18:28 09/08/17 03:35 White Blood Count 15.5 14.4 19.6 Red Blood Count 5.03 4.55 4.64 Hemoglobin 15.0 13.5 13.4 Hematocrit 46.7 42.3 42.9 Mean Corpuscular Volume 92.7 92.8 92.4 Mean Corpuscular Hemoglobin 29.8 29.6 28.8 Mean Corpuscular Hemoglobin Concent 32.2 31.8 31.2 Red Cell Distribution Width 19.3 19.3 19.1 Platelet Count 182 175 220 Mean Platelet Volume 7.9 8.2 7.8 Neutrophils (%) (Auto) 82.6 82.6 89.4 Lymphocytes (%) (Auto) 6.5 6.9 4.6 Monocytes (%) (Auto) 9.7 9.5 5.8 Eosinophils (%) (Auto) 0.7 0.6 0.0 Basophils (%) (Auto) 0.5 0.4 0.2 Neutrophils # (Auto) 12.8 11.9 17.5 Lymphocytes # (Auto) 1.0 1.0 0.9 Monocytes # (Auto) 1.5 1.4 1.1 Eosinophils # (Auto) 0.1 0.1 0.0 Basophils # (Auto) 0.1 0.1 0.0 CBC Comment DIFF FINAL DIFF FINAL DIFF FINAL Differential Comment Prothrombin Time 11.5 Prothromb Time International Ratio 1.0 Activated Partial Thromboplast Time 30.1 Blood Urea Nitrogen 33 34 39 Creatinine 8.34 8.36 9.39 Random Glucose 94 141 128 Calcium Level 9.3 8.7 9.1 Sodium Level 133 136 137 Potassium Level 4.3 5.0 5.2 Chloride Level 101 101 102 Carbon Dioxide Level 21.4 23.1 20.9 Anion Gap 11 12 14 Estimat Glomerular Filtration Rate 6 6 6 Total Protein 6.4 Albumin 2.3 Phosphorus Level 4.9 Magnesium Level 2.4 Alkaline Phosphatase 73 Aspartate Amino Transf (AST/SGOT) 12 Alanine Aminotransferase (ALT/SGPT) 12 Total Bilirubin 0.5 Free Thyroxine 1.12 Thyroid Stimulating Hormone 3rd Gen 2.340 Assessment and Plan Plan POD#1 s/p L UE access revision for bleeding pseudoaneurysm 1. Will need tunneled catheter for about a month while access revision heals - discussed with patient today 2. Hand ok and + thrill 3. No evidence of infection clinically intraoperatively so tunneled cath ok 4. Will follow Oscar Montiel MD Sep 08, 2017 09:04
[2017-09-08] MEDS ORDERED: ceFAZolin 2 GM PREMIX 50 ML IV SCH (10:45)
[2017-09-08] MEDS ORDERED: VANCOMYCIN INJ 1,000 MG in SODIUM CHLOR 0.9% 250 ML INJ 250 ML IV SCH (10:45)
--- NOTE | 2017-09-08 10:56 | PD.CONS ---
HPI Service Nephrology Consult Requested By Reason for Consult ESRD on HD Primary Care Physician No Primary Care Physician History of Present Illness This is a very pleasant 67 y/o male who has been on HD for several years. He had treatment Thursday. Thursday night he awoke to a pool of blood coming from AVF left arm. He came to ER and was discharged home multiple times. Last night he was emergently taken to the OR for vascular repair. He is hypotensive in ISC today, on neosynepherine. HE is awake, not in pain. We were consulted to assist with dialysis management. PMH as listed below, his son is present and the patient is a full code. K 5.2. (Kassie Adkins) Review of Systems Constitutional: COMPLAINS OF: Fatigue, DENIES: Fever, Change in appetite Cardiovascular: DENIES: Chest pain Gastrointestinal: DENIES: Abdominal pain Neurologic: DENIES: Abnormal gait (Kassie Adkins) Past Family Social History Allergies: Coded Allergies: No Known Allergies (Unverified , 09/06/17) Past Medical History ESRD on hemodialysis MWF Hypertension Obesity Anemia Metabolic bone disorder Chronic right foot fracture wears a boot for this chronically(Charcot's foot) Anxiety Neuropathy Past Surgical History Left upper extremity AV fistula failed Left upper extremity AV fistula 6 years ago Reported Medications Percocet (Oxycodone-Acetaminophen) 5-325 mg Tab 1 Tab PO Q4H PRN Xanax (Alprazolam) 0.5 Mg Tab 0.5 Mg PO Q4H PRN Pepcid (Famotidine) 40 Mg Tab 40 Mg PO DAILY Aspirin 81 Mg Chew 81 Mg CHEW DAILY Renvela (Sevelamer Carbonate) 800 Mg Tab 3,200 Mg PO TIDPC Renvela (Sevelamer Carbonate) 800 Mg Tab 2,400 Mg PO QID QID WITH SNACKS Neurontin (Gabapentin) 300 Mg Cap 300 Mg PO DAILY Active Ordered Medications Current Medications Medications (Trade) Dose Ordered Sig/Parrish Route Start Time Stop Time Status Last Admin (Xanax) 0.5 mg Q4H PRN PO 09/07/17 16:30 09/08/17 00:06 (Aspirin Chew) 81 mg DAILY CHEW 09/08/17 09:00 09/08/17 08:52 (Neurontin) 300 mg DAILY PO 09/08/17 09:00 09/08/17 08:51 (Renvela) 2,400 mg QID PO 09/07/17 18:00 09/08/17 08:51 (Catapres) 0.1 mg Q4H PRN PO 09/07/17 16:30 (NS Flush) 2 ml UNSCH PRN IV FLUSH 09/07/17 16:30 (NS Flush) 2 ml BID IV FLUSH 09/07/17 21:00 09/08/17 08:52 (Tylenol) 650 mg Q4H PRN PO 09/07/17 16:30 (Zofran Inj) 4 mg Q6H PRN IVP 09/07/17 16:30 (Compazine Supp) 25 mg Q12H PRN RECTAL 09/07/17 16:30 (Percocet 10-325 Mg) 1 tab Q6H PRN PO 09/07/17 16:30 (Narcan Inj) 0.4 mg UNSCH PRN IV PUSH 09/07/17 16:30 (Saida-Colace) 1 tab BID PO 09/07/17 21:00 09/08/17 08:51 (Milk Of Magnesia Liq) 30 ml Q12H PRN PO 09/07/17 16:30 (Senokot) 17.2 mg Q12H PRN PO 09/07/17 16:30 (Dulcolax Supp) 10 mg DAILY PRN RECTAL 09/07/17 16:30 (Lactulose Liq) 30 ml DAILY PRN PO 09/07/17 16:30 (Pepcid) 20 mg DAILY PO 09/08/17 09:00 09/08/17 08:52 Sodium Chloride 1,000 ml @ 0 mls/hr Q0M PRN OTHER 09/07/17 17:04 (Heparin Inj) 8,000 units UNSCH PRN IV FLUSH 09/07/17 17:15 Sodium Chloride 1,000 ml @ 200 mls/hr Q5H PRN IV 09/07/17 17:04 Sodium Chloride 1,000 ml @ 0 mls/hr Q0M PRN OTHER 09/07/17 17:04 (Mannitol Inj) 12.5 gm UNSCH PRN IV 09/07/17 17:15 Albumin Human 100 ml @ 60 mls/hr UNSCH PRN IV 09/07/17 17:15 (NS Flush) 5 ml UNSCH PRN IV FLUSH 09/07/17 17:15 (Heparin Inj) UNSCH PRN .XX 09/07/17 17:15 (Gentamicin (Dialysis) Inj) 20 mg UNSCH PRN OTHER 09/07/17 17:15 (Zofran Inj) 4 mg UNSCH PRN IV PUSH 09/07/17 17:15 (Tylenol) 650 mg UNSCH PRN PO 09/07/17 17:15 (Benadryl) 25 mg UNSCH PRN PO 09/07/17 17:15 (Nitrostat Sl) 0.4 mg UNSCH PRN SL 09/07/17 17:15 (Catapres) 0.1 mg UNSCH PRN PO 09/07/17 17:15 (Gelfoam 12 Mm/7 Mm Top) 1 foam UNSCH PRN TOP 09/07/17 17:15 (Roxicodone) 5 mg Q4H PRN PO 09/07/17 17:30 (Dilaudid) 2 mg Q4H PRN PO 09/07/17 17:30 (Morphine Inj) 2 mg Q1H PRN IV 09/07/17 17:45 Miscellaneous Information ALL NURSING DEPARTME... UNSCH PRN .XX 09/07/17 18:30 09/08/17 18:29 Phenylephrine HCl 40 mg/Dextrose 500 ml @ 30 mls/hr TITRATE PRN IV 09/07/17 20:15 09/08/17 04:17 (Brethine Inj) 1 mg UNSCH PRN SQ 09/07/17 20:15 Vancomycin HCl 1000 mg/Sodium Chloride 250 ml @ 250 mls/hr SMELTER OPERATOR IV 09/08/17 10:45 09/11/17 10:44 Cefazolin Sodium/ Dextrose 50 ml @ 100 mls/hr SMELTER OPERATOR IV 09/08/17 10:45 09/11/17 10:44 Family History Non contributory Social History Non smoker, no ETOH He is Retired automotive service manager Full code (Kassie Adkins) Physical Exam Vital Signs Vital Signs Date Time Temp Pulse Resp B/P (MAP) Pulse Ox O2 Delivery O2 Flow Rate FiO2 09/08/17 10:00 55 09/08/17 08:01 100 Nasal Cannula 2.00 09/08/17 08:00 98.2 60 16 112/66 (81) 96 09/08/17 08:00 60 09/08/17 07:00 60 09/08/17 07:00 97 Nasal Cannula 2.00 09/08/17 06:00 97.8 74 22 101/58 (72) 98 09/08/17 06:00 60 09/08/17 06:00 60 86/56 09/08/17 04:17 60 101/58 09/08/17 04:00 97.8 60 22 101/58 (72) 98 09/08/17 04:00 74 09/08/17 04:00 97.8 74 22 101/58 (72) 98 09/08/17 02:00 74 09/08/17 02:00 74 09/08/17 02:00 98.1 64 21 101/61 (74) 97 09/08/17 00:00 98.0 66 17 98/61 (73) 97 09/07/17 22:00 98.1 70 27 103/57 (72) 98 09/07/17 22:00 70 09/07/17 21:00 98.7 66 21 105/57 (73) 98 09/07/17 21:00 64 09/07/17 20:20 98.7 66 21 105/57 (73) 98 09/07/17 20:15 98.4 72 18 106/59 (75) 97 Nasal Cannula 2 09/07/17 20:00 70 18 103/58 (73) 97 Nasal Cannula 2 09/07/17 19:45 74 19 101/58 (72) 98 Nasal Cannula 2 09/07/17 19:30 74 19 101/58 (72) 98 Nasal Cannula 2 09/07/17 19:15 73 19 98/61 (73) 98 Nasal Cannula 2 09/07/17 19:00 72 19 105/61 (76) 98 Nasal Cannula 2 09/07/17 18:45 78 19 95/53 (67) 98 Nasal Cannula 2 09/07/17 18:40 78 19 97/52 (67) 98 Nasal Cannula 3 09/07/17 18:35 80 19 90/53 (65) 98 Nasal Cannula 3 09/07/17 18:30 80 19 116/58 (77) 98 Nasal Cannula 3 09/07/17 18:25 91 19 107/59 (75) 96 Nasal Cannula 3 09/07/17 18:20 93 19 76/43 (54) 96 Nasal Cannula 3 09/07/17 18:15 90 19 62/42 (49) 97 Nasal Cannula 3 09/07/17 18:00 87 16 77/51 (60) 97 Nasal Cannula 3 09/07/17 17:54 93 16 74/50 (58) 96 Nasal Cannula 3 09/07/17 17:49 98.5 95 16 70/51 (57) 93 Nasal Cannula 3 09/07/17 15:48 09/07/17 15:26 89 16 129/68 (88) 95 Room Air 09/07/17 14:34 98.3 94 18 139/68 (91) 100 Room Air 09/07/17 14:34 20 100 Room Air 09/07/17 14:34 94 20 100 Room Air 09/07/17 14:21 98.7 95 20 100 Physical Exam GENERAL: This is an obese,well-developed patient, in no apparent distress. SKIN: No rashes, ecchymoses or lesions. Cool and dry. Left upper extremity AV fistula dressed with good thrill and bruit HEAD: Atraumatic. Normocephalic. No temporal or scalp tenderness. EYES: PERRLA Extraocular motions intact. No scleral icterus. No injection or drainage. ENT: Nose without bleeding, purulent drainage or septal hematoma. Throat without erythema, tonsillar hypertrophy or exudate. Uvula midline. Airway patent. NECK: Trachea midline. No JVD or lymphadenopathy. Supple, nontender, no meningeal signs. CARDIOVASCULAR: Regular rate and rhythm without murmurs, gallops, or rubs. RESPIRATORY: CTA bilaterally Breath sounds equal bilaterally. No wheezes, rales , or rhonchi. GASTROINTESTINAL: Abdomen soft, non-tender, nondistended. No hepato-splenomegaly , or palpable masses. No guarding. Obese MUSCULOSKELETAL: Extremities without clubbing, cyanosis, or edema. No joint tenderness, effusion, or edema noted. No calf tenderness. Negative Homans sign bilaterally. Right lower extremity chronic fracture wears a boot NEUROLOGICAL: Awake and alert. Cranial nerves II through XII intact. Motor and sensory grossly within normal limits. Five out of 5 muscle strength in all muscle groups. Normal speech. Laboratory Laboratory Tests Test 09/07/17 14:35 09/07/17 18:28 09/08/17 03:35 White Blood Count 15.5 14.4 19.6 Red Blood Count 5.03 4.55 4.64 Hemoglobin 15.0 13.5 13.4 Hematocrit 46.7 42.3 42.9 Mean Corpuscular Volume 92.7 92.8 92.4 Mean Corpuscular Hemoglobin 29.8 29.6 28.8 Mean Corpuscular Hemoglobin Concent 32.2 31.8 31.2 Red Cell Distribution Width 19.3 19.3 19.1 Platelet Count 182 175 220 Mean Platelet Volume 7.9 8.2 7.8 Neutrophils (%) (Auto) 82.6 82.6 89.4 Lymphocytes (%) (Auto) 6.5 6.9 4.6 Monocytes (%) (Auto) 9.7 9.5 5.8 Eosinophils (%) (Auto) 0.7 0.6 0.0 Basophils (%) (Auto) 0.5 0.4 0.2 Neutrophils # (Auto) 12.8 11.9 17.5 Lymphocytes # (Auto) 1.0 1.0 0.9 Monocytes # (Auto) 1.5 1.4 1.1 Eosinophils # (Auto) 0.1 0.1 0.0 Basophils # (Auto) 0.1 0.1 0.0 CBC Comment DIFF FINAL DIFF FINAL DIFF FINAL Differential Comment Prothrombin Time 11.5 Prothromb Time International Ratio 1.0 Activated Partial Thromboplast Time 30.1 Blood Urea Nitrogen 33 34 39 Creatinine 8.34 8.36 9.39 Random Glucose 94 141 128 Calcium Level 9.3 8.7 9.1 Sodium Level 133 136 137 Potassium Level 4.3 5.0 5.2 Chloride Level 101 101 102 Carbon Dioxide Level 21.4 23.1 20.9 Anion Gap 11 12 14 Estimat Glomerular Filtration Rate 6 6 6 Total Protein 6.4 Albumin 2.3 Phosphorus Level 4.9 Magnesium Level 2.4 Alkaline Phosphatase 73 Aspartate Amino Transf (AST/SGOT) 12 Alanine Aminotransferase (ALT/SGPT) 12 Total Bilirubin 0.5 Free Thyroxine 1.12 Thyroid Stimulating Hormone 3rd Gen 2.340 (Kassie Adkins) Result Diagram: 09/08/17 0335 11/21/17 0335 Assessment and Plan Problem List: (1) ESRD (end stage renal disease) ICD Codes: N18.6 - End stage renal disease Status: Chronic Plan: Typical MWF HD, he had treatment Thursday Due to issue with fistula , hypotension on pressors, and lack of a catheter, we will defer dialysis to Thursday/Thursday NPO for PermCath today Avoid IVF, gadolinium is contraindicated K 5.2, repeat labs tomorrow High protein diet when no longer NPO Epogen not required (2) Hypotension ICD Codes: I95.9 - Hypotension, unspecified Status: Acute Plan: He is on neosynepherine currently Was on midodrine outpatient for a period. Unsure why it was stopped Chronic hypotension, avoid antihypertensives (3) Hemorrhage of arteriovenous fistula ICD Codes: T82.838A - Hemorrhage due to vascular prosthetic devices, implants and grafts, initial encounter Status: Acute Plan: s/p pseudoaneurysm repair by Dr. Montiel It will need to rest for several weeks prior to use continue wound care (4) Leukocytosis ICD Codes: D72.829 - Elevated white blood cell count, unspecified Status: Acute Plan: Given vancomycin and ancef preoperatively Monitor for signs of infection (5) Metabolic bone disease ICD Codes: E88.9 - Metabolic disorder, unspecified; M90.80 - Osteopathy in diseases classified elsewhere, unspecified site Plan: On Renvela with meals Intermittently monitor phosphorus level (Kassie Adkins) Assessment and Plan patient was seen and examined. Events noted. He reports that he had quite a bit of bleeding, but Hemoglobin is relatively stable, no need for transfusion. He had revision of bleeding pseudoaneurysm of the AVF, interposition of PTFE graft. He will need PermCath as per Dr. Montiel. Dialysis later today or tomorrow if PermCath placement is delayed. (Efrem Bernard MD) Problem Qualifiers (1) Hemorrhage of arteriovenous fistula: Qualified Codes: T82.838D - Hemorrhage due to vascular prosthetic devices, implants and grafts, subsequent encounter Kassie Adkins Sep 08, 2017 10:56 Efrem Bernard MD Sep 08, 2017 11:44
[2017-09-08 11:51] LABS: HEMOGLOBIN A1a 0.9 %; HEMOGLOBIN Ao 83.7 %; HEMOGLOBIN F 0.3 %; HEMOGLOBIN LA1C 2.5 %; HEMOGLOBIN P3 5.9 %
[2017-09-08] MEDS ORDERED: MIDAZOLAM HCL 2 MG/2 ML VIAL ONE (13:46)
[2017-09-08] MEDS ORDERED: LIDOCAINE 1%/EPINEPHrine 1:100,000 SOLN 20 ML VIAL ONE (14:13)
--- NOTE | 2017-09-08 14:51 | PD.RAD ---
Post Procedure Progress Note Pre Procedure Diagnosis: (1) ESRD (end stage renal disease) Post Procedure Diagnosis: (1) ESRD (end stage renal disease) Procedure Date: Sep 08, 2017 Supervising Radiologist: Bin Rivera JR Proceduralist/Assist: Lucho Moore, RT(R), Arielle Taylor RT(R) Anesthesia: Conscious Sedation Plan of Activity Patient to Unit: Critical Care Patient Condition: Good See PACS Report for procedural detail/treatment Central Venous Access Device Procedure 1 Right Internal Jugular Hemodialysis Catheter Tunneled dual lumen Latvian: 15 Findings: Catheter in good position and functions well. OK to use. Plan Remove sutures at base of neck and holding catheter in 2-3 weeks Jr. Miguel,Bin Harris MD Sep 08, 2017 14:51
[2017-09-08] MEDS ORDERED: SODIUM CHLORIDE 0.9% FLUSH 10 ML FLUSH IV FLUSH PRN (15:00)
[2017-09-08] MEDS ORDERED: HEPARIN SODIUM - IV 2,000 UNITS/2 ML VIAL IV FLUSH PRN (15:00)
--- NOTE | 2017-09-08 16:25 | RADRPT ---
EXAM DATE/TIME: 09/08/2017 15:32 [facility] COMPARISON: No previous studies available for comparison. INDICATIONS : Patient presents with endstage renal disease in need of dialysis catheter placement. MEDICAL HISTORY : End-stage renal disease on hemodialysis Hypertension Obesity Chronic right foot fracture wears a boot for this chronically Anxiety Neuropathy SURGICAL HISTORY : Left upper extremity AV fistula failed Left upper extremity AV fistula 6 years ago ENCOUNTER: Initial ACUITY: 2 days PAIN SCORE: 2/10 LOCATION: Left arm pain. FLUORO TIME: 0.8 minutes IMAGE SERIES: 1 SEDATION TIME: 30 minutes ACCESS: Right internal jugular vein SEDATION: 1.) 2 mg midazolam (Versed) IV 2.) 100 mcg fentanyl (Sublimaze) IV Prophylactic antibiotics were administered with appropriate pre-procedure timing. Vancomycin within 2 hours of procedure, Ancef (or alternative) within 1 hour of procedure. DEVICE: 1. 15 Lao dual lumen 23 cm Gilmore II Plus catheter PROCEDURE : 1. Ultrasound-guided venipuncture. 2. PermaCath placement. 3. Conscious sedation with continuous EKG and oximetry monitoring. The risks, benefits and alternatives to the procedure were explained and verbal and written consent w as obtained. The site was prepped in sterile fashion. Full sterile technique was used, including ca p, mask, sterile gloves and gown and a large sterile sheet. Hand hygiene and 2% chlorhexidine and/or betadine/alcohol prep was utilized per protocol for cutaneous antisepsis. Sterile gel and sterile p robe cover were utilized for ultrasound guidance. The skin and subcutaneous tissues were infiltrated with local anesthetic solution. With ultrasound and fluoroscopic guidance a dermatotomy was created over the prescribed vein. A micr opuncture set was used to access the targeted vein and serial dilatation was performed to accept the prescribed length catheter. A subcutaneous tunnel was created in a retrograde fashion the catheter w as pulled through the tunnel. The catheter was flushed and assembled and locked with heparin. The c atheter was sutured in place. Conscious sedation was performed with the prescribed dosages and duration as above in the presence of an independent trained radiology nurse to assist in the monitoring of the patient. EKG and oximetry remained stable throughout the procedure. The patient tolerated the procedure well and there were n o complications. The patient was sent to post anesthesia recovery in stable condition. CONCLUSION: Uncomplicated PermaCath placement as above. Bin Rivera Jr., MD on September 08, 2017 at 16:23 Board Certified Radiologist. This report was verified electronically.
--- NOTE | 2017-09-08 17:55 | EKG ---
Date Performed: 09/07/2017 Time Performed: 15:10:43 PTAGE: 67 years EKG: Sinus rhythm WITH OCCASIONAL SUPRAVENTRICULAR PREMATURE COMPLEXES RIGHT BUNDLE BRANCH BLOCK LEFT ANTERIOR FASCICU LAR BLOCK ABNORMAL ECG NO PREVIOUS TRACING DOCTOR: Shane Small Interpretating Date/Time 09/08/2017 17:54:22
--- NOTE | 2017-09-08 19:07 | EKG ---
Date Performed: 09/08/2017 Time Performed: 11:07:22 PTAGE: 67 years EKG: SINUS BRADYCARDIA RIGHT BUNDLE BRANCH BLOCK LEFT ANTERIOR FASCICULAR BLOCK Since previous t racing, no significant change noted ABNORMAL ECG PREVIOUS TRACING : 09/07/2017 15.10 DOCTOR: Shane Small Interpretating Date/Time 09/08/2017 19:06:07
--- NOTE | 2017-09-08 19:39 | HHI.CCPN ---
Subjective Remarks/Hospital Course 67 yo Male with PMH of end-stage renal disease on hemodialysis for the last 6 years via left upper extremity AV fistula that has been in place for the same period of time under the care of Dr. Yomi Hart. He typically undergoes HD on a MWF schedule but his schedule was altered this week due to the . He states on Thursday 09/06 he woke up in a pool of blood with blood pulsating form his arm. He was brought to the ED and hemostasis was achieved. He went to dialysis that day and again had bleeding and it was controlled in the ED again and then he returned to dialysis where he states he received his full treatment on Thu. He then had an additional episode on Thursday morning and paramedics applied a pressure dressing. Later he had a fourth episode of pulsatile bleeding and was again brought to the ED where vascular surgery consultation was obtained. He has now undergone repair of pseudo aneurysm and AVF revision by Dr. Montiel. He received 500 crystalloid. EBL intraoperatively was 300 mL. Preoperative hemoglobin is 15. He has not received any blood transfusions through the course of these events. He was hypotensive in PACU and was started on neosynephrine at 100 mcg/min. [facility] has been consulted to assist with medical management postoperatively. Patient complains of some tenderness at the surgical site. He is also anxious that it will bleed again and therefore says he is having some difficulty falling asleep. Remainder of review of systems negative. Denies CP or SOB Subjective: 09/08 Permacath placed today and plans for HD tomorrow. Remains on phenylephrine. Hgb stable around 13. Good cross tie turner strength. Objective Vital Signs Date Time Temp Pulse Resp B/P (MAP) Pulse Ox O2 Delivery O2 Flow Rate FiO2 09/08/17 18:00 58 09/08/17 17:43 99/55 09/08/17 16:00 98.0 25 97 09/08/17 08:01 Nasal Cannula 2.00 Intake and Output 09/08/17 09/08/17 09/09/17 08:00 16:00 00:00 Intake Total 983 ml 600 ml Output Total 0 ml 0 ml Balance 983 ml 600 ml Result Diagram: 09/08/17 0335 09/08/17 0335 Objective Remarks GENERAL: Well-nourished, well-developed obese male who is sitting up in ISC bed. SKIN: Warm and dry. HEAD: Atraumatic. Normocephalic. EYES: Pupils equal and round. No scleral icterus. No injection or drainage. ENT: No nasal bleeding or discharge. Mucous membranes pink and moist. NECK: Trachea midline. No JVD. CARDIOVASCULAR: regular, bradycardic with sinus bradycardia on the monitor mid to high 50s. No murmurs rubs or gallops. RESPIRATORY: He is breathing comfortably with no accessory muscle use on Ra. Breath sounds equal bilaterally. No wheezes Rales or rhonchi. GASTROINTESTINAL: Abdomen soft, non-tender, nondistended. Bowel sounds present. MUSCULOSKELETAL: Extremities without clubbing, cyanosis, or edema. Left upper arm is in francis wrap. Left radial pulse is weak but palpable. He has good cross tie turner strength. He reports decreased sensation in his fingers consistent with his prior peripheral neuropathy but nothing worse than baseline. There is a palpable and audible thrill in his left upper arm. NEUROLOGICAL: Awake and alert. No obvious cranial nerve deficits. Motor grossly within normal limits, normal cross tie turner strength as per above. Normal speech. A/P Problem List: (1) ESRD (end stage renal disease) ICD Code: N18.6 - End stage renal disease Status: Chronic (2) Hypotension ICD Code: I95.9 - Hypotension, unspecified Status: Acute (3) Leukocytosis ICD Code: D72.829 - Elevated white blood cell count, unspecified Status: Acute (4) Hemorrhage of arteriovenous fistula ICD Code: T82.838A - Hemorrhage due to vascular prosthetic devices, implants and grafts, initial encounter Status: Acute (5) GERD (gastroesophageal reflux disease) ICD Code: K21.9 - Gastro-esophageal reflux disease without esophagitis Status: Chronic (6) Morbid obesity with BMI of 40.0-44.9, adult ICD Code: E66.01 - Morbid (severe) obesity due to excess calories; Z68.41 - Body mass index (BMI) 40.0-44.9, adult Status: Chronic (7) Anxiety ICD Code: F41.9 - Anxiety disorder, unspecified Status: Chronic (8) Peripheral neuropathy ICD Code: G62.9 - Polyneuropathy, unspecified Status: Chronic Assessment and Plan NEURO: Peripheral neuropathy Anxiety Continue Neurontin 300 g by mouth daily Continue Xanax 0.5 mg by mouth every 4 hours as needed OOB. RESP: On RA. IS every hour awake. CV: Hypotension. Patient states he has intermittent hypotension at baseline and has been on midodrine in the past but he stopped taking it due to concern it may raise BP too high. Will resume midodrine 10 po bid and wean neosynephrine drip. Continue aspirin 81 daily GI: GERD Obesity Continue Pepcid 20 mg daily FEN/RENAL: ESRD R Permacath placed 09/08 in IR. HD per nephrology, tentatively Wed. 09/09. Continue Renvela Bleeding left upper extremity pseudoaneurysm - Status post AV fistula revision, 09/07/17 (Dr. Montiel) POD #1. ID: Received perioperative vancomycin. Monitor for signs and symptoms of infection. HEME: Hgb stable in 13s. ENDO: Mild stress hyperglycemia secondary to acute blood loss and surgery. Monitor and initiate low-dose insulin sliding scale as indicated PROPH: Heparin 5000 subcutaneous every 12 hours for DVT prophylaxis. Pepcid 20 mill grams daily for GERD/stress ulcer prophylaxis ACCESS: Peripheral IV providing adequate access at this time. Level 2 followup. Problem Qualifiers (1) Hemorrhage of arteriovenous fistula: Qualified Codes: T82.838D - Hemorrhage due to vascular prosthetic devices, implants and grafts, subsequent encounter Dayana Chairez MD Sep 08, 2017 19:39
[2017-09-08] MEDS: MIDODRINE 5 MG TAB PO SCH (20:54)
[2017-09-08] MEDS: HEPARIN SODIUM - SQ 10,000 UNITS/ML VIAL SQ SCH (21:11)
[2017-09-08] MEDS: oxyCODONE/ACETAMINOPHEN 10 MG/325 MG TAB PO PRN (21:53)
[2017-09-08] MEDS ORDERED: VANCOMYCIN 1,000 MG/NS 250 ML IV ONE ×2 (22:45)
[2017-09-09] VITALS (12 sets, daily range): BP systolic 56–125; BP diastolic 35–63; PULSE 50–87; RESP 16–27; TEMP 97.3–98; O2SAT 92–99
[2017-09-09] MEDS: PHENYLEPHRINE 40 MG in D5W 500 ML IV PRN (02:20)
[2017-09-09] MEDS: MIDODRINE 5 MG TAB PO SCH ×3 (02:30→18:57)
[2017-09-09] MEDS ORDERED: ALBUMIN 25% INJ 50 ML IV ONE (05:00)
[2017-09-09 05:05] LABS: AUTOMATED NEUTROPHIL # 12.5 TH/MM3 (1.8-7.7); BASOPHIL # 0.1 TH/MM3 (0-0.2); BASOPHIL % 0.5 % (0.0-2.0); EOSINOPHIL # 0.3 TH/MM3 (0-0.4); EOSINOPHIL % 1.5 % (0.0-4.0); HEMATOCRIT 42.3 % (39.0-51.0); LYMPH % 13.4 % (9.0-44.0); LYMPHOCYTE # 2.3 TH/MM3 (1.0-4.8); MEAN CELL VOLUME 92.6 FL (80.0-100.0); MEAN CORPUSCULAR HEMOGLOBIN 29.4 PG (27.0-34.0); MEAN CORPUSCULAR HGB CONC 31.7 % (32.0-36.0); MONO % 12.4 % (0.0-8.0); NEUT % 72.2 % (16.0-70.0); PLATELET COUNT 260 TH/MM3 (150-450); RED BLOOD COUNT 4.57 MIL/MM3 (4.50-5.90); RED CELL DISTRIBUTION WIDTH 18.8 % (11.6-17.2); WHITE BLOOD COUNT 17.3 TH/MM3 (4.0-11.0)
[2017-09-09 05:12] LABS: BICARBONATE 18.5 MEQ/L (21.0-32.0); POTASSIUM 4.9 MEQ/L (3.5-5.1)
[2017-09-09 05:15] LABS: HEMO FLAGS AUTO DIFF
[2017-09-09 05:42] LABS: PLATELET ESTIMATE SMEAR NORMAL (NORMAL); PLATELET MORPHOLOGY NORMAL (NORMAL); SCAN/DIFF AUTO DIFF CONFIRMED
--- NOTE | 2017-09-09 06:44 | PD.VS.PN ---
Subjective POD #: 2 Procedure(s): L UE AVF revision (interposition graft for bleeding pseudoaneurysm) Subjective/Hospital Course pt looks great notes "sore" upper arm at area of incision hand ok got tunneled catheter yesterday and plan for HD today Objective Vitals/I&O Date Time Temp Pulse Resp B/P (MAP) Pulse Ox O2 Delivery O2 Flow Rate FiO2 09/09/17 06:00 52 09/09/17 04:00 97.3 52 16 121/62 (81) 92 09/09/17 04:00 52 09/09/17 02:21 68 56/35 09/09/17 02:20 68 56/35 09/09/17 02:00 97.6 59 27 56/35 (42) 93 09/09/17 02:00 68 09/09/17 00:00 97.4 50 22 111/63 (79) 97 09/09/17 00:00 50 09/09/17 00:00 50 09/08/17 22:00 97.6 48 28 97/59 (72) 97 09/08/17 22:00 48 09/08/17 20:00 52 09/08/17 20:00 97.8 52 22 90/56 (67) 94 09/08/17 18:00 58 09/08/17 17:43 51 99/55 09/08/17 16:00 58 09/08/17 16:00 98.0 58 25 97/54 (68) 97 09/08/17 15:00 58 09/08/17 12:00 98.5 70 14 94/57 (69) 96 09/08/17 12:00 70 09/08/17 10:00 55 09/08/17 08:01 100 Nasal Cannula 2.00 09/08/17 08:00 98.2 60 16 112/66 (81) 96 09/08/17 08:00 60 09/08/17 07:00 60 09/08/17 07:00 97 Nasal Cannula 2.00 09/09/17 09/09/17 09/09/17 07:00 15:00 23:00 Intake Total 2481 ml Output Total 0 ml Balance 2481 ml Exam: L UE incision intact minimal tenderness at antecubital aspect of incision + thrill good hand strength Laboratory Laboratory Tests Test 09/09/17 03:49 White Blood Count 17.3 Red Blood Count 4.57 Hemoglobin 13.4 Hematocrit 42.3 Mean Corpuscular Volume 92.6 Mean Corpuscular Hemoglobin 29.4 Mean Corpuscular Hemoglobin Concent 31.7 Red Cell Distribution Width 18.8 Platelet Count 260 Mean Platelet Volume 7.4 Neutrophils (%) (Auto) 72.2 Lymphocytes (%) (Auto) 13.4 Monocytes (%) (Auto) 12.4 Eosinophils (%) (Auto) 1.5 Basophils (%) (Auto) 0.5 Neutrophils # (Auto) 12.5 Lymphocytes # (Auto) 2.3 Monocytes # (Auto) 2.1 Eosinophils # (Auto) 0.3 Basophils # (Auto) 0.1 CBC Comment AUTO DIFF Differential Comment AUTO DIFF CONFIRMED Platelet Estimate NORMAL Platelet Morphology Comment NORMAL Blood Urea Nitrogen 50 Creatinine 10.34 Random Glucose 93 Calcium Level 8.7 Sodium Level 136 Potassium Level 4.9 Chloride Level 99 Carbon Dioxide Level 18.5 Anion Gap 19 Estimat Glomerular Filtration Rate 5 Date/Time Source Procedure Growth Status 09/08/17 22:56 Blood Peripheral Aerobic Blood Culture Pending Received 09/08/17 22:56 Blood Peripheral Anaerobic Blood Culture Pending Received Assessment and Plan Plan POD#2 s/p L UE access revision for bleeding pseudoaneurysm 1. use tunneled catheter for about a month 2. Hand ok and + thrill 3. Will arrange f/u in clinic in 2-3 weeks 4. ok to d/c anytime from a vascular surgery standpoint Oscar Montiel MD Sep 09, 2017 06:44
--- NOTE | 2017-09-09 07:53 | HHI.CCPN ---
Subjective Remarks/Hospital Course 67 yo Male with PMH of end-stage renal disease on hemodialysis for the last 6 years via left upper extremity AV fistula that has been in place for the same period of time under the care of Dr. Yomi Hart. He typically undergoes HD on a MWF schedule but his schedule was altered this week due to the . He states on Thursday 09/06 he woke up in a pool of blood with blood pulsating form his arm. He was brought to the ED and hemostasis was achieved. He went to dialysis that day and again had bleeding and it was controlled in the ED again and then he returned to dialysis where he states he received his full treatment on Thu. He then had an additional episode on Thursday morning and paramedics applied a pressure dressing. Later he had a fourth episode of pulsatile bleeding and was again brought to the ED where vascular surgery consultation was obtained. He has now undergone repair of pseudo aneurysm and AVF revision by Dr. Montiel. He received 500 crystalloid. EBL intraoperatively was 300 mL. Preoperative hemoglobin is 15. He has not received any blood transfusions through the course of these events. He was hypotensive in PACU and was started on neosynephrine at 100 mcg/min. [facility] has been consulted to assist with medical management postoperatively. Patient complains of some tenderness at the surgical site. He is also anxious that it will bleed again and therefore says he is having some difficulty falling asleep. Remainder of review of systems negative. Denies CP or SOB Subjective: 09/08 Permacath placed today and plans for HD tomorrow. Remains on phenylephrine. Hgb stable around 13. Good spring layer strength. 09/09: Remains on Maynor-synephrine at 100 mcg/ min. SBP dropped to 50 when Maynor- Synephrine was temporarily off. Patient states that his blood pressure usually runs low, he can get as low as 70-80 systolic. Currently also on Midrin at 10 mg every 8 hours. Plan for HD today. Hb remains stable Objective Vital Signs Date Time Temp Pulse Resp B/P (MAP) Pulse Ox O2 Delivery O2 Flow Rate FiO2 09/09/17 06:00 52 09/09/17 04:00 97.3 16 121/62 (81) 92 09/08/17 08:01 Nasal Cannula 2.00 Intake and Output 09/09/17 09/09/17 09/10/17 08:00 16:00 00:00 Intake Total 2481 ml Output Total 0 ml Balance 2481 ml Result Diagram: 09/09/17 0349 09/09/17 0349 Objective Remarks GENERAL: Well-nourished, well-developed obese male who is lying in ISC bed. SKIN: Warm and dry. HEAD: Atraumatic. Normocephalic. EYES: Pupils equal and round. No scleral icterus. No injection or drainage. ENT: No nasal bleeding or discharge. Mucous membranes pink and moist. NECK: Trachea midline. No JVD. CARDIOVASCULAR: regular, bradycardic with sinus bradycardia on the monitor mid to high 50s. No murmurs rubs or gallops. RESPIRATORY: Breathing comfortably with no accessory muscle use on RA. Breath sounds equal bilaterally. No wheezes Rales or rhonchi. GASTROINTESTINAL: Abdomen soft, non-tender, nondistended. Bowel sounds present. MUSCULOSKELETAL: Extremities without clubbing, cyanosis, or edema. Left upper arm is in francis wrap. Left radial pulse is weak but palpable. He has good spring layer strength. He reports decreased sensation in his fingers consistent with his prior peripheral neuropathy but nothing worse than baseline. There is a palpable and audible thrill in his left upper arm. NEUROLOGICAL: Awake and alert. No obvious cranial nerve deficits. Motor grossly within normal limits, normal spring layer strength as per above. Normal speech. A/P Problem List: (1) ESRD (end stage renal disease) ICD Code: N18.6 - End stage renal disease Status: Chronic (2) Hypotension ICD Code: I95.9 - Hypotension, unspecified Status: Acute (3) Leukocytosis ICD Code: D72.829 - Elevated white blood cell count, unspecified Status: Acute (4) Hemorrhage of arteriovenous fistula ICD Code: T82.838A - Hemorrhage due to vascular prosthetic devices, implants and grafts, initial encounter Status: Acute (5) GERD (gastroesophageal reflux disease) ICD Code: K21.9 - Gastro-esophageal reflux disease without esophagitis Status: Chronic (6) Morbid obesity with BMI of 40.0-44.9, adult ICD Code: E66.01 - Morbid (severe) obesity due to excess calories; Z68.41 - Body mass index (BMI) 40.0-44.9, adult Status: Chronic (7) Anxiety ICD Code: F41.9 - Anxiety disorder, unspecified Status: Chronic (8) Peripheral neuropathy ICD Code: G62.9 - Polyneuropathy, unspecified Status: Chronic Assessment and Plan NEURO: Peripheral neuropathy Anxiety Continue Neurontin 300 g by mouth daily Continue Xanax 0.5 mg by mouth every 4 hours as needed OOB. RESP: On RA. IS every hour awake. CV: Hypotension. Patient states he has intermittent hypotension at baseline and has been on midodrine in the past but he stopped taking it due to concern it may raise BP too high. Continue midodrine 10 po bid and wean neosynephrine drip (currently at 100 mcg/ min). Continue aspirin 81 daily GI: GERD Obesity Continue Pepcid 20 mg daily FEN/RENAL: ESRD R Permacath placed 09/08 in IR. HD per nephrology, tentatively Wed. 09/09. Continue Renvela Bleeding left upper extremity pseudoaneurysm - Status post AV fistula revision, 09/07/17 (Dr. Montiel) POD #2. ID: Received perioperative vancomycin. Monitor for signs and symptoms of infection. HEME: Hgb stable in 13s. Elevated WBC most likely stress response ENDO: Mild stress hyperglycemia secondary to acute blood loss and surgery. Monitor and initiate low-dose insulin sliding scale as indicated. Check cortisol and TSH PROPH: Heparin 5000 subcutaneous every 12 hours for DVT prophylaxis. Pepcid 20 mill grams daily for GERD/stress ulcer prophylaxis ACCESS: Peripheral IV providing adequate access at this time. Level 2 followup. Problem Qualifiers (1) Hemorrhage of arteriovenous fistula: Qualified Codes: T82.838D - Hemorrhage due to vascular prosthetic devices, implants and grafts, subsequent encounter Tomasz Romano MD Sep 09, 2017 07:52
[2017-09-09] MEDS: HEPARIN SODIUM - SQ 10,000 UNITS/ML VIAL SQ SCH ×2 (09:00→21:09)
[2017-09-09] MEDS: SODIUM CHLORIDE 0.9% FLUSH 10 ML FLUSH IV FLUSH SCH ×2 (09:00→21:10)
[2017-09-09] MEDS ORDERED: VANCOMYCIN INJ 1,000 MG in SODIUM CHLOR 0.9% 250 ML INJ 250 ML IV SCH (10:45)
[2017-09-09] MEDS ORDERED: SODIUM BICARBONATE 8.4% INJ 50 MEQ/50 ML SYR IV PUSH ONE (11:00)
[2017-09-09] MEDS ORDERED: SODIUM BICARBONATE 8.4% INJ 75 MEQ in SODIUM CHLOR 0.45% 1000 ML INJ 1,000 ML IV SCH (11:00)
[2017-09-09] MEDS: ASPIRIN 81 MG CHEW TAB CHEW SCH (11:09)
[2017-09-09] MEDS: DOCUSATE SODIUM 50 MG/SENNA 8.6 MG TAB PO SCH ×2 (11:09→21:10)
[2017-09-09] MEDS: SEVELAMER CARBONATE 800 MG TAB PO SCH ×4 (11:09→21:08)
[2017-09-09] MEDS: FAMOTIDINE 20 MG TAB PO SCH (11:10)
[2017-09-09] MEDS: GABAPENTIN 300 MG CAP PO SCH (11:10)
--- NOTE | 2017-09-09 13:07 | HHI.NPPN ---
Subjective Renal Failure: Chronic, End Stage Renal Disease Interval History Seen during bedside dialysis. He is off pressors, on midodrine. Blood pressure improved. (Kassie Adkins) Objective Data Data Vital Signs Date Time Temp Pulse Resp B/P (MAP) Pulse Ox O2 Delivery O2 Flow Rate FiO2 09/09/17 07:58 98 21 09/09/17 06:00 52 09/09/17 04:00 97.3 52 16 121/62 (81) 92 09/09/17 04:00 52 09/09/17 02:21 68 56/35 09/09/17 02:20 68 56/35 09/09/17 02:00 97.6 59 27 56/35 (42) 93 09/09/17 02:00 68 09/09/17 00:00 97.4 50 22 111/63 (79) 97 09/09/17 00:00 50 09/09/17 00:00 50 09/08/17 22:00 97.6 48 28 97/59 (72) 97 09/08/17 22:00 48 09/08/17 20:00 52 09/08/17 20:00 97.8 52 22 90/56 (67) 94 09/08/17 18:00 58 09/08/17 17:43 51 99/55 09/08/17 16:00 58 09/08/17 16:00 98.0 58 25 97/54 (68) 97 09/08/17 15:00 58 (Kassie Adkins) -: 09/09/17 0349 09/09/17 0349 Microbiology 09/08/17 Aerobic Blood Culture - Preliminary, Resulted NO GROWTH IN 1 DAY 09/08/17 Anaerobic Blood Culture - Final, Resulted QNS - SEE AEROBE REPORT 09/08/17 Aerobic Blood Culture - Preliminary, Resulted NO GROWTH IN 1 DAY 09/08/17 Anaerobic Blood Culture - Final, Resulted QNS - SEE AEROBE REPORT Imaging Last 72 hours Impressions Catheter Placement X-Ray 09/08/17 0000 Signed Impressions: Service Date/Time: Friday, September 08, 2017 15:32 - CONCLUSION: Uncomplicated PermaCath placement as above. Bin Rivera Jr., MD Tubes & Lines: Perma-Cath (Kassie Adkins) Physical Exam General Appearance: Well Developed, Comfortable, Obese (Kassie Adkins) Throat Throat Exam: Oral Mucosa [place] & Moist (Kassie Adkins) Neck Neck Exam: Neck Supple (Kassie Adkins) Pulmonary Resp Exam: Clear Bilaterally, Breath Sounds Equal (Kassie Adkins) Cardiology CV Exam: Regular, Normal Sinus Rhythm, Good Perfusion (Kassie Adkins) Gastrointestinal/Abdomen GI Exam: Soft, Non-Tender, Bowel Sounds Present (Kassie Adkins) Musculoskeletal MS Exam: Joints Intact, Normal Tone (Kassie Adkins) Integumentary Skin Exam: Warm, Dry, Intact (Kassie Adkins) Extremeties Extremities Exam: No Edema, Pedal Pulses Palpable Extremeties Remarks left arm AVF wrapped, audible bruit, dressing dry/intact (Kassie Adkins) Neurologic Neuro Exam: Alert, Awake, Oriented, Speech Clear, Moving All Extremities (Kassie Adkins) Psychiatric Psych Exam: Appropriate Responses (Kassie Adkins) Assessment/Plan Discussed Condition With: Patient Assessment Summary: Hypotension, End Stage Renal Disease Problem List: (1) ESRD (end stage renal disease) ICD Codes: N18.6 - End stage renal disease Status: Chronic Plan: Seen during dialysis today on a 2K, 350 BFR, goal 3L We will use permcath for HD for the next several weeks BP improved with midodrine Avoid IVF High protein diet discussed He has existing outpatient HD arrangements; next dialysis Thursday in [facility]. (2) Hemorrhage of arteriovenous fistula ICD Codes: T82.838A - Hemorrhage due to vascular prosthetic devices, implants and grafts, initial encounter Status: Acute Plan: s/p pseudoaneurysm repair by Dr. Montiel It will need to rest for several weeks prior to use continue wound care (3) Hypotension ICD Codes: I95.9 - Hypotension, unspecified Status: Acute Plan: Off neosynephrine currently Restarted midodrine TID Chronic hypotension, avoid antihypertensives (4) Leukocytosis ICD Codes: D72.829 - Elevated white blood cell count, unspecified Status: Acute Plan: Given vancomycin and ancef preoperatively He had positive blood cultures in the HD clinic Will be on vancomycin 1 g with each HD x 3 weeks; order placed (5) Metabolic bone disease ICD Codes: E88.9 - Metabolic disorder, unspecified; M90.80 - Osteopathy in diseases classified elsewhere, unspecified site Plan: On Renvela with meals Intermittently monitor phosphorus level (Kassie Adkins) Plan patient was seen and examined. Agree with above assessment and plan. (Efrem Bernard MD) Problem Qualifiers (1) Hemorrhage of arteriovenous fistula: Qualified Codes: T82.838D - Hemorrhage due to vascular prosthetic devices, implants and grafts, subsequent encounter Kassie Adkins Sep 09, 2017 13:07 Efrem Bernard MD Sep 10, 2017 07:23
[2017-09-09] MEDS: oxyCODONE/ACETAMINOPHEN 10 MG/325 MG TAB PO PRN ×2 (22:41)
[2017-09-10] VITALS: BP 104/57; PULSE 75; RESP 21; TEMP 97.9; O2SAT 94
[2017-09-10] MEDS: MIDODRINE 5 MG TAB PO SCH ×2 (02:57→12:28)
[2017-09-10 04:00] VITALS: BP 97/58; PULSE 66; RESP 20; TEMP 97.8; O2SAT 96
[2017-09-10 08:00] VITALS: BP 92/55; PULSE 66; PULSE 69; RESP 20; TEMP 98.1; O2SAT 95
[2017-09-10] MEDS: FAMOTIDINE 20 MG TAB PO SCH (08:37)
[2017-09-10] MEDS: ASPIRIN 81 MG CHEW TAB CHEW SCH (08:38)
[2017-09-10] MEDS: SEVELAMER CARBONATE 800 MG TAB PO SCH ×2 (08:38→12:35)
[2017-09-10] MEDS: DOCUSATE SODIUM 50 MG/SENNA 8.6 MG TAB PO SCH (08:38)
[2017-09-10] MEDS: HEPARIN SODIUM - SQ 10,000 UNITS/ML VIAL SQ SCH (08:38)
[2017-09-10] MEDS: GABAPENTIN 300 MG CAP PO SCH (08:38)
[2017-09-10] MEDS: SODIUM CHLORIDE 0.9% FLUSH 10 ML FLUSH IV FLUSH SCH (08:38)
--- NOTE | 2017-09-10 08:58 | PD.VS.PN ---
Subjective POD #: 3 Procedure(s): L UE AVF revision (interposition graft for bleeding pseudoaneurysm) Subjective/Hospital Course looks great, sitting OOB in a chair arm less sore and good mobility per patient Objective Vitals/I&O Date Time Temp Pulse Resp B/P (MAP) Pulse Ox O2 Delivery O2 Flow Rate FiO2 09/10/17 08:00 98.1 66 20 92/55 (67) 95 09/10/17 04:00 97.8 66 20 97/58 (71) 96 09/10/17 00:00 Room Air 09/10/17 00:00 97.9 75 21 104/57 (73) 94 09/09/17 20:05 79 09/09/17 20:00 97.8 87 21 106/57 (73) 93 09/09/17 16:00 97.6 60 18 105/56 (72) 97 09/09/17 12:00 98.0 58 18 111/51 (71) 98 09/09/17 10:00 61 09/10/17 09/10/17 09/10/17 07:00 15:00 23:00 Intake Total 400 ml Output Total 0 ml Balance 400 ml Exam: L UE incision c/d/i good hand strength + thrill R chest catheter in place Laboratory Laboratory Tests Test 09/09/17 09:04 09/09/17 10:51 Thyroid Stimulating Hormone 3rd Gen 3.700 Random Cortisol 28.7 Lactic Acid Level 1.3 Date/Time Source Procedure Growth Status 09/08/17 22:56 Blood Peripheral Aerobic Blood Culture - Preliminary NO GROWTH IN 1 DAY Resulted 09/08/17 22:56 Blood Peripheral Anaerobic Blood Culture - Final QNS - SEE AEROBE REPORT Resulted Assessment and Plan Plan POD#3 s/p L UE access revision for bleeding pseudoaneurysm 1. use tunneled catheter for about a month 2. Hand ok and + thrill 3. outpatient f/u arranged and confirmed with patient 4. ok to d/c anytime from a vascular surgery standpoint Oscar Montiel MD Sep 10, 2017 08:58
[2017-09-10 09:07] VITALS: O2SAT 92
[2017-09-10] MEDS ORDERED: MIDO5TAB PO (11:19)
[2017-09-10] MEDS ORDERED: PERC5TAB12 PO (11:19)
--- NOTE | 2017-09-10 11:20 | HHI.DCPOC ---
Discharge Care Plan Diagnosis: (1) Hemorrhage of arteriovenous fistula (2) Dialysis AV fistula malfunction (3) Morbid obesity with BMI of 40.0-44.9, adult (4) Hypotension (5) Peripheral neuropathy Goals to Promote Your Health * To prevent worsening of your condition and complications * To maintain your health at the optimal level Directions to Meet Your Goals Take your medications as prescribed Follow your dietary instruction Follow activity as directed Keep your appointments as scheduled Take your immunizations and boosters as scheduled If your symptoms worsen call your PCP, if no PCP go to Urgent Care Center or Emergency Room Smoking is Dangerous to Your Health. Avoid second hand smoke Call the 24-hour hour crisis hotline for domestic abuse at French Sigala DO Sep 10, 2017 11:20
--- NOTE | 2017-09-10 11:31 | HHI.DS ---
Discharge Summary Admission Date Sep 07, 2017 at 16:20 Discharge Date: Sep 10, 2017 Admitting Diagnosis malfunctioning AV fistula, AV fistula bleeding (1) Dialysis AV fistula malfunction ICD Code: T82.590A - Other mechanical complication of surgically created arteriovenous fistula, initial encounter Diagnosis: Principal Status: Acute (2) Hemorrhage of arteriovenous fistula ICD Code: T82.838A - Hemorrhage due to vascular prosthetic devices, implants and grafts, initial encounter Diagnosis: Principal Status: Acute (3) Metabolic bone disease ICD Code: E88.9 - Metabolic disorder, unspecified; M90.80 - Osteopathy in diseases classified elsewhere, unspecified site (4) Morbid obesity with BMI of 40.0-44.9, adult ICD Code: E66.01 - Morbid (severe) obesity due to excess calories; Z68.41 - Body mass index (BMI) 40.0-44.9, adult Status: Chronic (5) Hypotension ICD Code: I95.9 - Hypotension, unspecified Status: Acute (6) ESRD (end stage renal disease) ICD Code: N18.6 - End stage renal disease Status: Chronic (7) Peripheral neuropathy ICD Code: G62.9 - Polyneuropathy, unspecified Status: Chronic (8) Leukocytosis ICD Code: D72.829 - Elevated white blood cell count, unspecified Status: Acute Procedures AVF repair Brief History - From Admission 67 yo male with ESRD who had L UE AVF placed 6 years ago, getting HD TTS but got HD yesterday because of impending holiday, who presents with bleeding L UE AVF. Has bled x 4 over past 24-48 hours and he has been in ED three times according to the patient. HD yesterday was full run with no problems. CBC/BMP: 09/09/17 0349 09/09/17 0349 Significant Findings Laboratory Tests Test 09/07/17 14:35 09/07/17 18:28 09/08/17 03:35 09/09/17 03:49 White Blood Count 15.5 TH/MM3 (4.0-11.0) 14.4 TH/MM3 (4.0-11.0) 19.6 TH/MM3 (4.0-11.0) 17.3 TH/MM3 (4.0-11.0) Red Cell Distribution Width 19.3 % (11.6-17.2) 19.3 % (11.6-17.2) 19.1 % (11.6-17.2) 18.8 % (11.6-17.2) Neutrophils (%) (Auto) 82.6 % (16.0-70.0) 82.6 % (16.0-70.0) 89.4 % (16.0-70.0) 72.2 % (16.0-70.0) Lymphocytes (%) (Auto) 6.5 % (9.0-44.0) 6.9 % (9.0-44.0) 4.6 % (9.0-44.0) Monocytes (%) (Auto) 9.7 % (0.0-8.0) 9.5 % (0.0-8.0) 12.4 % (0.0-8.0) Neutrophils # (Auto) 12.8 TH/MM3 (1.8-7.7) 11.9 TH/MM3 (1.8-7.7) 17.5 TH/MM3 (1.8-7.7) 12.5 TH/MM3 (1.8-7.7) Monocytes # (Auto) 1.5 TH/MM3 (0-0.9) 1.4 TH/MM3 (0-0.9) 1.1 TH/MM3 (0-0.9) 2.1 TH/MM3 (0-0.9) Blood Urea Nitrogen 33 MG/DL (7-18) 34 MG/DL (7-18) 39 MG/DL (7-18) 50 MG/DL (7-18) Creatinine 8.34 MG/DL (0.60-1.30) 8.36 MG/DL (0.60-1.30) 9.39 MG/DL (0.60-1.30) 10.34 MG/DL (0.60-1.30) Sodium Level 133 MEQ/L (136-145) Estimat Glomerular Filtration Rate 6 ML/MIN (>89) 6 ML/MIN (>89) 6 ML/MIN (>89) 5 ML/MIN (>89) Mean Corpuscular Hemoglobin Concent 31.8 % (32.0-36.0) 31.2 % (32.0-36.0) 31.7 % (32.0-36.0) Random Glucose 141 MG/DL (74-106) 128 MG/DL (74-106) Lymphocytes # (Auto) 0.9 TH/MM3 (1.0-4.8) Albumin 2.3 GM/DL (3.4-5.0) Aspartate Amino Transf (AST/SGOT) 12 U/L (15-37) Potassium Level 5.2 MEQ/L (3.5-5.1) Carbon Dioxide Level 20.9 MEQ/L (21.0-32.0) 18.5 MEQ/L (21.0-32.0) Anion Gap 19 MEQ/L (5-15) Test 09/09/17 09:04 09/09/17 10:51 Imaging Last Impressions Catheter Placement X-Ray 09/08/17 0000 Signed Impressions: Service Date/Time: Friday, September 08, 2017 15:32 - CONCLUSION: Uncomplicated PermaCath placement as above. Bin Rivera Jr., MD PE at Discharge GENERAL: Well-nourished, well-developed obese male who is lying in ISC bed. SKIN: Warm and dry. HEAD: Atraumatic. Normocephalic. EYES: Pupils equal and round. No scleral icterus. No injection or drainage. ENT: No nasal bleeding or discharge. Mucous membranes pink and moist. NECK: Trachea midline. No JVD. CARDIOVASCULAR: regular, bradycardic with sinus bradycardia on the monitor mid to high 50s. No murmurs rubs or gallops. RESPIRATORY: Breathing comfortably with no accessory muscle use on RA. Breath sounds equal bilaterally. No wheezes Rales or rhonchi. GASTROINTESTINAL: Abdomen soft, non-tender, nondistended. Bowel sounds present. MUSCULOSKELETAL: Extremities without clubbing, cyanosis, or edema. Left upper arm is in francis wrap. Left radial pulse is weak but palpable. He has good nurses medical assistants phlebotomists strength. He reports decreased sensation in his fingers consistent with his prior peripheral neuropathy but nothing worse than baseline. There is a palpable and audible thrill in his left upper arm. NEUROLOGICAL: Awake and alert. No obvious cranial nerve deficits. Motor grossly within normal limits, normal nurses medical assistants phlebotomists strength as per above. Normal speech. Pt update on day of discharge The pt was looking forward to going home. He had no acute complaints. Discussed with nursing. Hospital Course Bleeding left upper extremity pseudoaneurysm The pt's hemoglobin remained stable. Vascular surgery was consulted. Status post AV fistula revision, 09/07/17 (Dr. Montiel). The pt was cleared for discharge by and will follow up with vascular surgery as an outpt. He will receive pain control as needed. Hypotension. Patient states he has intermittent hypotension at baseline and has been on midodrine in the past but he stopped taking it due to concern it may raise his BP too high. He was placed on a neosynephrine drip which has been weaned off. Blood pressure is improved on midodrine. He will continue taking midodrine as an outpt. It was recommended to monitor the pt an additional day in the hospital setting but the pt was adamant on leaving. He said he will monitor his blood pressure at home very closely and will return to the hospital if it becomes low or if he develops symptoms. He will follow up with his PCP. ESRD Nephrology was consulted. R Permacath placed 09/08 by IR. He will continue Renvela. Next dialysis session scheduled for 09/11 in the AM. Leukocytosis The pt is being treated for bacteremia by nephrology. He will continue vancomycin with dialysis per nephrology. Pt Condition on Discharge: Stable Discharge Disposition: Discharge Home Discharge Time: > 30 minutes Discharge Instructions DIET: Follow Instructions for: Renal Failure Diet Activities you can perform: Weight Bearing as [place] Follow up Referrals: Nephrology - 1 Week PCP Follow-up - 09/11/17 Vascular Surgery @ Vascular Surgery with Oscar Montiel MD New Medications: Midodrine (Midodrine) 5 Mg Tab 10 MG PO Q8H for Low blood pressure, #90 TAB Continued Medications: Alprazolam (Xanax) 0.5 Mg Tab 0.5 MG PO Q4H PRN for ANXIETY, TAB 0 Refills Aspirin (Aspirin) 81 Mg Chew 81 MG CHEW DAILY, TAB 0 Refills Famotidine (Pepcid) 40 Mg Tab 40 MG PO DAILY, TAB 0 Refills Gabapentin (Neurontin) 300 Mg Cap 300 MG PO DAILY, CAP 0 Refills Oxycodone-Acetaminophen (Percocet) 5-325 mg Tab 1 TAB PO Q4H PRN for PAIN, #15 TAB 0 Refills (This prescription has been renewed ) Sevelamer Carbonate (Renvela) 800 Mg Tab 2400 MG PO QID for Control phosphorous levels, TAB 0 Refills QID WITH SNACKS Sevelamer Carbonate (Renvela) 800 Mg Tab 3200 MG PO TIDPC for Control phosphorous levels, TAB 0 Refills French Sigala DO Sep 10, 2017 11:31
[2017-09-10 12:00] VITALS: BP 131/56; PULSE 73; RESP 20; TEMP 98.2; O2SAT 93
== END 2017-09-10 13:49 | disposition home or self-care (01) | DRG 252 ==
LOC: NEPE 14:09 → NEDA 15:41 → OBSVTOIN 16:20 → HPAC 17:00 → N03A 21:01 → N04B 09-09 15:08
PROVIDERS: ADMIT Hospitalist; ATTEND Hospitalist
PROC: 05BY0ZZ Excision of Upper Vein, Open Approach (ICD-10-PCS; 2017-09-07)
PROC: 03R Upper Arteries, Replacement (ICD-10-PCS; 2017-09-07)
PROC: 03BY0ZZ Excision of Upper Artery, Open Approach (ICD-10-PCS; principal; 2017-09-07 15:52)
PROC: 05HM33Z Insertion of Infusion Device into Right Internal Jugular Vein, Percutaneous Approach (ICD-10-PCS; 2017-09-08)
PROC: 5A1D70Z Performance of Urinary Filtration, Intermittent, Less than 6 Hours Per Day (ICD-10-PCS; 2017-09-09)
DX: I72.8 Aneurysm of other specified arteries (principal); N18.6 End stage renal disease; I95.89 Other hypotension; T82.898A Other specified complication of vascular prosthetic devices, implants and grafts, initial encounter; I12.0 Hypertensive chronic kidney disease with stage 5 chronic kidney disease or end stage renal disease; E88.89 Other specified metabolic disorders; Z68.41 Body mass index [BMI] 40.0-44.9, adult; Z99.2 Dependence on renal dialysis; E66.01 Morbid (severe) obesity due to excess calories; G62.9 Polyneuropathy, unspecified; D72.829 Elevated white blood cell count, unspecified; F41.9 Anxiety disorder, unspecified; K21.9 Gastro-esophageal reflux disease without esophagitis; R73.09 Other abnormal glucose; D64.9 Anemia, unspecified; Y84.1 Kidney dialysis as the cause of abnormal reaction of the patient, or of later complication, without mention of misadventure at the time of the procedure; Z89.421 Acquired absence of other right toe(s)
CPT/HCPCS: 36558; 76937; 77001; 80048; 80053; 82533; 83036; 83605; 83735; 84100; 84439; 84443; 85025; 85610; 85730; 86850; 86900; 86901; 87040; 90935; 93005; 94150; 96365; 96375; 99152; 99153; C1750; C1769; J0330; J0690; J1100; J1644; J2250; J2370; J2405; J2720; J3010; J3370; J7050; J7060; L0150; L0172; P9047

== ENCOUNTER 2017-11-19 14:03 | Day surgery (SDC) | payer MEDICARE, OTHER ==
[~2017-11-19] VITALS: Ht 175.3 cm; Wt 135.6 kg
[~2017-11-19 14:03] MED LIST changes: +ALPR.5 PO; +ASPI-516 CHEW; -DEXAMETHASONE SOD PHOS 4 MG/ML VIAL IV ONE; +FAMO1TAB73 PO; -HEPARIN SODIUM - SQ 10,000 UNITS/ML VIAL OTHER ONE; -LIDOCAINE HCL 1% PF 5 ML SYRINGE OTHER ONE; +MIDO5TAB PO; +NEUR300C PO; -ONDANSETRON HCL 4 MG/2 ML VIAL IV PUSH ONE; +PERC5TAB12 PO; -PHENYLEPH/NS 1000 MCG/10 ML SYR IV ONE; -PROPOFOL 200 MG/20 ML AMP IV ONE; -ROCURONIUM INJ 50 MG/5 ML SYRINGE IV PUSH ONE; +SEVEL800 PO; -SUCCINYLCHOLINE CHLORIDE 100 MG/5 ML SYRINGE IV PUSH ONE; -ePHEDrine/NS 25 MG/5 ML SYR IV ONE
[2017-11-19] MEDS ORDERED: IOHEXOL 350 MG/ML 50 ML BTL (for Cath Lab) OTHER ONE (14:04)
--- NOTE | 2017-11-19 14:48 | PD.VS.PN ---
Pre-operative Note Pre-operative diagnosis: Failing L UE AVF Planned procedure: L UE fistulogram, intervention Interval History: Pt had HD yesterday and feels well. Ready for surgery. Labs: pending Blood: none needed Imaging: will make Orders: NPO Post-operative destination: DOCU Operative site marked: Yes Consent: Informed consent has been obtained from [place]. I have explained the procedure in detail and discussed the risks, benefits, and potential complications. All questions have been answered. Oscar Montiel MD Nov 19, 2017 14:48
[2017-11-19 15:07] VITALS: BP 118/69; PULSE 85; RESP 18; TEMP 98.1; O2SAT 98
[2017-11-19] MEDS ORDERED: HEPARIN-NS/PF INJ 1,000 ML ONE (15:41)
[2017-11-19] MEDS ORDERED: MIDAZOLAM HCL 2 MG/2 ML VIAL ONE (15:42)
[2017-11-19] MEDS ORDERED: HEPARIN SODIUM - IV 10,000 UNITS/10 ML VIAL ONE (15:42)
--- NOTE | 2017-11-19 16:07 | HHI.PR ---
cc: Oscar Montiel MD Immediate Post Op Note Procedure Date: Nov 19, 2017 Pre Op Diagnosis: failing L UE AVF Post Op Diagnosis: failing L UE AVF Surgeon: Oscar Montiel Cold Meat Cook(s): none Procedure: 1. L UE fistulogram 2. FOREIGN CLERK of vein (6mm) Findings: focal stenosis, good response to FOREIGN CLERK Complications: none Estimated blood loss: 10mL Anesthesia: MAC Drains: None Patient to: Other (DOCU) Patient Condition: Good Date/Time of Procedure: SEE SURGICAL CARE RECORD Oscar Montiel MD Nov 19, 2017 16:07
--- NOTE | 2017-11-19 16:22 | CATHPROC ---
[email or web address] HIS Report Study Information Study Number Admission Scheduled Start Study Start [id number] Nov 19 2017 2:03PM 11/19/2017 Nov 19 2017 3:39PM [place] Service Cath Endovascular Study Admit Source Facility Department Other [facility] - Wig Maker Physician and Clinical Staff Initial Oscar Torre Instrumentation And Controls DesignerYanique Urrutia,RN Recorder Vandana Marroquin,RT(R) (BS) Scrub Loki CowanRT(R) Procedures Performed Procedure Location (Site) Vessel Name POST GRADUATE INTERN Fistula Arterial Graft Wire insertion Brach. Vein (left) Brachial Vein Equipment Time Chemical Recovery Operator Description Size Mfg Part Number Used/Scraped INTRODUCER SET, 15:56 [employer] FR 5 [id number] *[id number] Used MICROPUNCTURE, STIFFENED WIRE, STORQ STANDARD MOD J [id number] 15:59 CORDIS/ NEO 300CM Used 300CM *[id number] BALLOON, ADMIRAL EXTREME 6 [id number] 16:00 [employer]ATE[employer]ovance [employer] 80CM Used X 40 80CM *[id number] 15:56 [place] PACK, CCL CUSTOM * Used *[id number] 15:56 NYCOMED OMNIPAQUE, 300 MG, 150ML 150ML [id number] Used 15:56 NYCOMED OMNIPAQUE, 300 MG, 50ML 50ML [id number] Used [id number] 15:56 MAC MEDICAL BLANKET,WARM AIR CCL * Used *[id number] 16:00 TERUMO MEDICAL SHEATH, FR5 TERUMO (10CM) FR 5 Used *[id number] History: Current Medications Medication Dosage/Unit Route Frequency Last Date/Time Taken ASA History: Allergies Allergy Reaction No Known Allergies Labs K (meq/l) 3.50-5.10 4.9 Medication Medication Total Dose (Bolus/Oral) Medication Total Dosage/Unit 1% XYLOCAINE 20 mL FENTANYL 50 mcg HEPARIN 3000 units OXYGEN 2 l/min VERSED 2 mg Medications (Bolus/Oral) Medication Time Given Dosage/Unit Administered By Reason VERSED 11/19/2017 3:51:51 PM 2 mg Yanique Bowens 2 mg VERSED given in lab by Yanique Bowens, RN in Right Antecubital via Peripheral IV. FENTANYL 11/19/2017 3:52:01 PM 50 mcg Yanique Bowens 50 mcg FENTANYL given in lab by Yanique Bowens, RN in Left Antecubital via Peripheral IV. 1% XYLOCAINE 11/19/2017 3:54:44 PM 20 mL Oscar Montiel 20 mL 1% XYLOCAINE given in lab by Oscar Montiel in Left Arm via Subcutaneous. OXYGEN 11/19/2017 3:56:09 PM 2 l/min Yanique Bowens 2 l/min OXYGEN given in lab by Yanique Bowens RN via Nasal. HEPARIN 11/19/2017 3:57:37 PM 3000 units Yanique Bowens 3000 units HEPARIN given in lab by Yanique Bowens RN in Right Antecubital via Peripheral IV. Medication (Drip) Medication Time Given Dosage/Unit Concentration/Unit Diluent (ml) Solution IV Solutions 11/19/2017 3:42:02 PM 0 mL (IV) 500 NaCl .9 IV Solutions given in lab by Yanique Bowens RN in Right Antecubital via Peripheral IV. Pump/Drip Fl ow = 30 ml/hr using NaCl .9. Initial Case Assessment Cardiovascular HR NIBP 82 126/82 Edema Present Skin color Skin None Normal Warm Dry Circulatory - Lower Extremities Color Lower Right Color Lower Left Normal Normal Neurological State Oriented to time-place- Alert Moves all extremities person Respiration - General Respiration Rate SpO2 (%) (B/min) 13 97 Chronological Log Time Study Chronological Log 15:40:07 Patient arrived via Bed. 15:40:08 Patient Name, D.O.B, / Armband Verified By R.N. 15:40:09 Consent signed by the physician and the patient and verified by the Wig Maker staff. 15:40:09 Pre-op and post- op instructions given; patient acknowledges understanding of instructions. 15:40:10 Verbal Stimulation=2 Physical Stimulation=2 Airway=2 Respiration=2 TOTAL=8. (0=absent, 1=li mited, 2=present) 15:41:42 Presedation assessment performed by Wig Maker RN. 15:41:55 Patient has been NPO for More than 6Hrs. 15:41:58 Patient Warmer Placed on the Table. 15:42:01 Carter Prominences Protected 15:42:01 A # 20 IV was noted in the Antecubital (right). Grade = 0 IV Solutions given in lab by Yanique Bowens RN in Right Antecubital via Peripheral IV. Pump/D rip Flow = 30 ml/hr 15:42:02 using NaCl .9. 15:42:03 History and physical on the chart or being dictated. Assessment: Initial Case, HR=82 BPM, VTDV=508/82 mmhg, Edema=None, Color=Normal, Skin = Warm, D ry Lower Right Extremities: Color=Normal 15:42:25 Lower Left Extremities: Color=Normal Neurological: State=Alert, Ox3, BAEZ Respiration: Resp=13 B/min, SpO2=97 % Time Out. Correct patient, correct procedure, correct physician, power injector not loaded with contrast with surgical 15:45:23 team present. Time Out Concurred by MD and individual staff in procedure. Vitals capture started with the following parameters, Patient=Adult, Interval=5 min, Initial Pr jerizf=778 mmHg, 15:48:47 Deflation Rate=5 mmHg, Cuff placed on Right Arm 15:49:27 HR=80 bpm, SYHG=872/82 mmhg, SpO2=98.0 %, Resp=4 B/min, Pain=0, Jo Ann=10, Muir=2 15:51:51 2 mg VERSED given in lab by Yanique Bowens, TYRONE in Right Antecubital via Peripheral IV. 15:52:01 50 mcg FENTANYL given in lab by Yanique Bowens RN in Left Antecubital via Peripheral IV. 15:54:22 HR=80 bpm, SVQW=538/73 mmhg, Resp=11 B/min 15:54:39 Case Start 15:54:44 20 mL 1% XYLOCAINE given in lab by Oscar Montiel in Left Arm via Subcutaneous. 15:55:41 Access site was Left Brachial Vein. 15:55:54 Reference ECG taken 15:56:09 2 l/min OXYGEN given in lab by Yanique Bowens, TYRONE via Nasal. A INTRODUCER SET, MICROPUNCTURE, STIFFENED FR 5 was advanced into the Brach. Vein (left) using the 15:56:41 Percutaneous technique. 15:57:37 3000 units HEPARIN given in lab by Yanique Bowens, TYRONE in Right Antecubital via Peripheral IV. 15:57:56 A WIRE, STORQ STANDARD MOD J 300CM 300CM was inserted via Brach. Vein (left). A SHEATH, FR5 TERUMO (10CM) FR 5 was exchanged in the Brach. Vein (left). This was necessary i n order to 15:59:14 accomodate a larger catheter. 15:59:21 HR=74 bpm, CDGV=528/68 mmhg, Resp=9 B/min, Pain=0, Jo Ann=10, Muir=2 A BALLOON, ADMIRAL EXTREME 6 X 40 80CM 80CM was inserted over WIRE, STORQ STANDARD MOD J 300CM 300CM 15:59:46 via the Brach. Vein (left). 16:00:10 In the Fistula a BALLOON, ADMIRAL EXTREME 6 X 40 80CM 80CM was inflated to 10 atms for 120 seconds. 16:03:21 Balloon Removed. 16:03:42 Case End 16:04:11 Sheath removed; pressure applied to access site. 16:04:20 HR=82 bpm, NHNU=416/65 mmhg, SpO2=98.0 %, Resp=15 B/min, Pain=0, Jo Ann=10, Muir=2 16:06:29 No case complications noted. 16:06:47 Bedside Report will be given. 16:09:24 HR=87 bpm, NIBP=81/55 mmhg, SpO2=92.0 %, Resp=14 B/min, Pain=0, Jo Ann=10, Muir=2 16:14:47 HR=81 bpm, QLXB=420/137 mmhg, Resp=9 B/min, Pain=0, Jo Ann=10, Muir=2 16:14:48 Sterile dressing applied to site 16:19:24 HR=86 bpm, NIBP=96/77 mmhg, Resp=10 B/min, Pain=0, Jo Ann=10, Muir=2 16:20:30 Vitals capture stopped. 16:23:51 Patient moved to [facility] End Study - Contrast Media Used In Study Contrast Total Opened (mL) Total Used (mL) Total Wasted (mL) Omnipaque 20 20 0 End Study - Radiation Exposure Fluoro Time (minutes) 1.6 End Study - Sheaths Sheaths Pulled By Sheath Hold Time (min) Loki Cowan End Study - Patient Disposition Complications Transferred To Interventional Outcome No Wig Maker Holding successful
--- NOTE | 2017-11-20 14:29 | MP ---
cc: KEVIN MONTIEL MD DATE OF SURGERY 11/19/2017 PREOPERATIVE DIAGNOSIS Failing left upper extremity arteriovenous fistula POSTOPERATIVE DIAGNOSIS Failing left upper extremity arteriovenous fistula PROCEDURE 1. Left upper extremity fistulogram. 2. Angioplasty of vein to 6 mm. ATTENDING SURGEON Kevin Montiel. ANESTHESIA Local with sedation. INDICATION Mr. Montenegro is a 67-year-old gentleman who had a left upper extremity acute hemorrhage from his fistula several months ago. This was repaired with interposition PTFE graft. He presented to the clinic and preoperative imaging on duplex suggested that he had a fistula stenosis. He is taken to the operating room for angiographic evaluation and potential treatment. DESCRIPTION OF PROCEDURE Informed consent was obtained from the patient. He was taken to the operating room and placed supine on the operating table. An appropriate timeout was taken to ensure the patient's identity, operative site and planned procedure. Everyone in the room agreed with the timeout and we proceeded. His left arm was prepped and draped and locally anesthetized with 1% lidocaine. A 21-gauge micropuncture needle was used to access the left fistula. This was exchanged using Seldinger technique for a micropuncture sheath through which a fistulogram was obtained. The fistulogram showed a mid fistula stenosis. A 0.035 Stork wire was introduced. The micropuncture sheath was exchanged for a 5 Greek sheath and over the Storq wire a 6 mm balloon was used to angioplasty the area of stenosis. The completion angiogram showed excellent result without any recoil extravasation. The wire, catheter and sheath were removed. Pressure was held for hemostasis. There were no complications. I was present and scrubbed and performed the entire procedure. INTERPRETATION OF IMAGES The patient has a patent brachial artery based access that has a smooth tapered stenosis at the mid aspect. This was successfully dilated with a 6 mm balloon. MD KVNG Osborne/TONNY /7:41 PM /2:07 PM [email or web address]
== END 2017-11-19 18:54 | disposition home or self-care (01) ==
LOC: HDOC 14:03 → HDIC 14:03 → HDOC 18:54
PROVIDERS: ATTEND Surgery
DX: T82.858D Stenosis of other vascular prosthetic devices, implants and grafts, subsequent encounter (principal); I12.0 Hypertensive chronic kidney disease with stage 5 chronic kidney disease or end stage renal disease; N18.6 End stage renal disease
CPT/HCPCS: 36901; 37248; 84132; 99152; C1725; C1893; J1644; J2250; J3010; Q9967

== ENCOUNTER 2018-02-02 11:15 | Observation (INO) | payer MEDICARE, OTHER ==
[~2018-02-02] VITALS: Ht 175.3 cm; Wt 142.5 kg
[~2018-02-02 11:15] MED LIST changes: -ALPR.5 PO; -MIDO5TAB PO; -PERC5TAB12 PO
[2018-02-02] MEDS ORDERED: POVIDONE IODINE 5% (ANTISEPSIS KIT) 4 APPLICATIONS EACH NARE PRN (11:45)
[2018-02-02] MEDS ORDERED: LACTATED RINGER'S 1000 ML IV PRN (11:45)
[2018-02-02] MEDS ORDERED: SODIUM CHLORID 0.9% 500 ML IV PRN (11:45)
[2018-02-02] MEDS ORDERED: CHLORHEXIDINE GLUCONATE 2 % 1 PACK (2 CLOTHS) TOPICAL PRN (11:45)
[2018-02-02] MEDS ORDERED: METOPROLOL TARTRATE 25 MG TAB PO PRN (11:45)
[2018-02-02] MEDS ORDERED: INSULIN HUMAN REGULAR 1,000 UNITS/10 ML VIAL SQ PRN (11:45)
[2018-02-02] MEDS ORDERED: DEXAMETHASONE SOD PHOS 4 MG/ML VIAL IV ONE (12:00)
[2018-02-02] MEDS ORDERED: PHENYLEPH/NS 1000 MCG/10 ML SYR IV ONE (12:00)
[2018-02-02] MEDS ORDERED: SODIUM CHLORID 0.9% 500 ML INJ 500 ML IV ONE (12:00)
[2018-02-02] MEDS ORDERED: NEOSTIGMINE 5 MG/5 ML SYRINGE IV PUSH ONE (12:00)
[2018-02-02] MEDS ORDERED: ROCURONIUM INJ 50 MG/5 ML SYRINGE IV PUSH ONE (12:00)
[2018-02-02] MEDS ORDERED: GLYCOPYRROLATE 1 MG/5 ML SYRINGE IV PUSH ONE (12:00)
[2018-02-02] MEDS ORDERED: ONDANSETRON HCL 4 MG/2 ML VIAL IV ONE (12:00)
[2018-02-02] MEDS ORDERED: LIDOCAINE HCL 1% PF 5 ML SYRINGE OTHER ONE (12:00)
[2018-02-02] MEDS ORDERED: PROPOFOL 200 MG/20 ML AMP IV ONE (12:00)
[2018-02-02] MEDS ORDERED: ePHEDrine/NS 25 MG/5 ML SYRINGE IV ONE (12:00)
--- NOTE | 2018-02-02 12:39 | HHI.HP ---
History of Present Illness Chief Complaint: L UE with AVF, difficult cannulation History of Present Illness 68 yo male with ESRD and multiple L UE AVF who presented in Aug 2017 with bleeding AVF; taken to OR emergently for interposition/pseudoaneurysm repair Past/Family/Social History Past Medical History ESRD HTN Past Surgical History multiple L UE AVf Social History nonsmoker Family History NC Home Medications Reported Medications Famotidine (Pepcid) 40 Mg Tab, 40 MG PO DAILY, TAB 0 Refills 09/07/17 Aspirin (Aspirin) 81 Mg Chew, 81 MG CHEW DAILY, TAB 0 Refills 09/07/17 Sevelamer Carbonate (Renvela) 800 Mg Tab, 3200 MG PO TIDPC for Control phosphorous levels, TAB 0 Refills 09/07/17 Sevelamer Carbonate (Renvela) 800 Mg Tab, 2400 MG PO QID for Control phosphorous levels, TAB 0 Refills QID WITH SNACKS 09/07/17 Gabapentin (Neurontin) 300 Mg Cap, 300 MG PO DAILY, CAP 0 Refills 09/07/17 Coded Allergies: No Known Allergies (Unverified , 02/02/18) Review of Systems Constitutional: DENIES: Diaphoretic episodes, Fatigue, Fever, Weight gain, Weight loss, Chills, Dizziness, Change in appetite, Night Sweats Cardiovascular: DENIES: Chest pain, Palpitations, Syncope, Dyspnea on Exertion , PND, Lower Extremity Edema, Orthopnea, Claudication Physical Exam Vitals/I&O Date Time Temp Pulse Resp B/P (MAP) Pulse Ox O2 Delivery O2 Flow Rate FiO2 02/02/18 12:04 98.7 86 20 120/79 (93) 98 Neuro: alert, oriented HEENT: NC/AT Neck: no JVD Heart: reg rate Lungs: clear Vascular: L UE with healed incisions and + thrill Extremities: hand ok pending Caprini VTE Risk Assessment Caprini VTE Risk Assessment: No/Low Risk (score <= 1) Caprini Risk Assessment Model Point Value = 1 Point Value = 2 Point Value = 3 Point Value = 5 Age 41-60 Minor surgery BMI > 25 kg/m2 Swollen legs Varicose veins or History of unexplained or recurrent spontaneous Oral contraceptives or hormone replacement Sepsis (< 1 month) Serious lung disease, including pneumonia (< 1 month) Abnormal pulmonary function Acute myocardial infarction Congestive heart failure (< 1 month) History of inflammatory bowel disease Medical patient at bed rest Age 61-74 Arthroscopic surgery Major open surgery (> 45 min) Laparoscopic surgery (> 45 min) Malignancy Confined to bed (> 72 hours) Immobilizing plaster cast Central venous access Age >= 75 History of VTE Family history of VTE Factor V Leiden Prothrombin 09296H Lupus anticoagulant Anticardiolipin antibodies Elevated serum homocysteine Heparin-induced thrombocytopenia Other congenital or acquired thrombophilia Stroke (< 1 month) Elective arthroplasty Hip, pelvis, or leg fracture Acute spinal cord injury (< 1 month) Prophylaxis Regimen Total Risk Factor Score Risk Level Prophylaxis Regimen 0-1 Low Early ambulation 2 Moderate Order ONE of the following: *Sequential Compression Device (SCD) *Heparin 5000 units SQ BID 3-4 Higher Order ONE of the following medications: *Heparin 5000 units SQ TID *Enoxaparin/Lovenox 40 mg SQ daily (WT < 150 kg, CrCl > 30 mL/min) *Enoxaparin/Lovenox 30 mg SQ daily (WT < 150 kg, CrCl > 10-29 mL/min) *Enoxaparin/Lovenox 30 mg SQ BID (WT < 150 kg, CrCl > 30 mL/min) AND/OR *Sequential Compression Device (SCD) 5 or more Highest Order ONE of the following medications: *Heparin 5000 units SQ TID (Preferred with Epidurals) *Enoxaparin/Lovenox 40 mg SQ daily (WT < 150 kg, CrCl > 30 mL/min) *Enoxaparin/Lovenox 30 mg SQ daily (WT < 150 kg, CrCl > 10-29 mL/min) *Enoxaparin/Lovenox 30 mg SQ BID (WT < 150 kg, CrCl > 30 mL/min) AND *Sequential Compression Device (SCD) Assessment and Plan Plan L UE Access revision To OR Operative site marked. Discharge Planning 1-2 days Family [phone] Oscar Montiel MD Feb 02, 2018 12:39
[2018-02-02 12:44] LABS: AUTOMATED NEUTROPHIL # 8.6 TH/MM3 (1.8-7.7); BASOPHIL # 0.1 TH/MM3 (0-0.2); BASOPHIL % 1.2 % (0.0-2.0); EOSINOPHIL # 0.2 TH/MM3 (0-0.4); HEMATOCRIT 41.5 % (39.0-51.0); HEMOGLOBIN 13.2 GM/DL (13.0-17.0); LYMPH % 12.5 % (9.0-44.0); LYMPHOCYTE # 1.4 TH/MM3 (1.0-4.8); MEAN CORPUSCULAR HEMOGLOBIN 27.9 PG (27.0-34.0); MEAN CORPUSCULAR HGB CONC 31.7 % (32.0-36.0); MONO % 10.3 % (0.0-8.0); MONOCYTE # 1.2 TH/MM3 (0-0.9); PLATELET COUNT 256 TH/MM3 (150-450); RED BLOOD COUNT 4.72 MIL/MM3 (4.50-5.90); RED CELL DISTRIBUTION WIDTH 16.5 % (11.6-17.2); WHITE BLOOD COUNT 11.6 TH/MM3 (4.0-11.0)
[2018-02-02 12:49] LABS: PROTHROMBIN TIME - PATIENT 10.4 SEC (9.8-11.6)
[2018-02-02 13:07] LABS: BICARBONATE 23.7 MEQ/L (21.0-32.0); CALCIUM 9.9 MG/DL (8.5-10.1)
[2018-02-02 13:14] LABS: CREATININE 10.19 MG/DL (0.60-1.30)
[2018-02-02] MEDS ORDERED: BUPIVACAINE HCL PF 0.5% 30 ML VIAL ONE (13:56)
[2018-02-02] MEDS ORDERED: HEPARIN SODIUM - IV 10,000 UNITS/10 ML VIAL ONE (13:56)
[2018-02-02] MEDS ORDERED: PROTAMINE SULFATE 50 MG/5 ML VIAL ONE (13:56)
[2018-02-02] MEDS ORDERED: THROMBIN (TOPICAL) 20,000 UNIT SPRAY KIT ONE (13:57)
[2018-02-02] MEDS ORDERED: VANCOMYCIN HCL 1000 MG VIAL ONE (13:57)
[2018-02-02] MEDS ORDERED: HEPARIN-NS/PF INJ 500 ML ONE (13:57)
--- NOTE | 2018-02-02 16:44 | HHI.PR ---
cc: Oscar Montiel MD Immediate Post Op Note Procedure Date: Feb 02, 2018 Pre Op Diagnosis: Failing L UE AVF Post Op Diagnosis: Failing L UE AVF Surgeon: Oscar Montiel Shovel Logger(s): Juan Antonio Felix Procedure: L UE AVF revision (excision and interposition with PTFE), superficialization Findings: + thrill after AVF revision + Doppler signal in wrist Complications: none Specimen(s) removed: none Estimated blood loss: 50mL Anesthesia: General Drains: None Fluids: 600mL IVF Patient to: PACU Patient Condition: Good Implant/Devices: SEE IMPLANT LOG (if applicable) Date/Time of Procedure: SEE SURGICAL CARE RECORD Oscar Montiel MD Feb 02, 2018 16:44
[2018-02-02] MEDS ORDERED: BISACODYL 10 MG SUPP RECTAL PRN (16:45)
[2018-02-02] MEDS ORDERED: LACTULOSE SYRUP 20 GM/30 ML CUP PO PRN (16:45)
[2018-02-02] MEDS ORDERED: SENNOSIDES 8.6 MG TAB PO PRN (16:45)
[2018-02-02] MEDS ORDERED: SUGAMMADEX SODIUM 200 MG/2 ML VIAL IV PUSH ONE (16:56)
[2018-02-02] MEDS ORDERED: DO NOT ADM ANY ANTICOAGULANT DRUGS PRN (17:12)
[2018-02-02] MEDS ORDERED: *morphine SULFATE 4 MG/ML PERIprocedure ONLY ONE ×2 (17:14→18:10)
[2018-02-02] MEDS ORDERED: MIDAZOLAM HCL 2 MG/2 ML VIAL ONE (17:18)
[2018-02-02] MEDS ORDERED: SEVELAMER CARBONATE 800 MG TAB PO SCH (18:00)
[2018-02-02] MEDS: SEVELAMER CARBONATE 800 MG TAB PO SCH (18:30)
[2018-02-02] MEDS ORDERED: ONDANSETRON HCL 4 MG/2 ML VIAL IV PUSH ONE ×2 (19:30→20:15)
[2018-02-02 20:00] VITALS: BP 118/58; PULSE 77; RESP 17; TEMP 97.5; O2SAT 93
[2018-02-02] MEDS ORDERED: SODIUM CHLORIDE 0.9% IV PRN (20:45)
[2018-02-02] MEDS ORDERED: ONDANSETRON IV PRN (20:45)
[2018-02-02] MEDS ORDERED: FAMOTIDINE 20 MG TAB PO SCH (21:00)
[2018-02-02] MEDS: DOCUSATE SODIUM 50 MG/SENNA 8.6 MG TAB PO SCH (21:00)
[2018-02-02] MEDS: HEPARIN SODIUM - SQ 10,000 UNITS/ML VIAL SQ SCH (22:00)
[2018-02-02] MEDS: ZOLPIDEM TARTRATE 5 MG TAB PO PRN (23:08)
[2018-02-03] VITALS (7 sets, daily range): BP systolic 81–120; BP diastolic 51–62; PULSE 74–103; RESP 16–20; TEMP 97.4–97.8; O2SAT 95–97
[2018-02-03] MEDS ORDERED: ONDANSETRON HCL 4 MG/2 ML VIAL IV PUSH PRN ×2 (01:45→08:45)
[2018-02-03] MEDS: HEPARIN SODIUM - SQ 10,000 UNITS/ML VIAL SQ SCH ×3 (05:37→20:15)
[2018-02-03] MEDS ORDERED: ONDANSETRON HCL 4 MG/2 ML VIAL IV PRN (05:45)
[2018-02-03 07:54] LABS: CALCIUM 9.4 MG/DL (8.5-10.1)
[2018-02-03] MEDS: ASPIRIN 81 MG CHEW TAB CHEW SCH (08:00)
[2018-02-03] MEDS: DOCUSATE SODIUM 50 MG/SENNA 8.6 MG TAB PO SCH ×2 (08:00→20:15)
[2018-02-03] MEDS: GABAPENTIN 300 MG CAP PO SCH (08:00)
[2018-02-03] MEDS: SEVELAMER CARBONATE 800 MG TAB PO SCH ×3 (08:01→17:34)
[2018-02-03 08:09] LABS: CREATININE 11.54 MG/DL (0.60-1.30)
--- NOTE | 2018-02-03 08:22 | MP ---
cc: Oscar Montiel MD DATE OF OPERATION: 02/02/2018 PREOPERATIVE DIAGNOSIS: End-stage renal disease, left upper extremity failing fistula. POSTOPERATIVE DIAGNOSIS: End-stage renal disease, left upper extremity failing fistula. PROCEDURE PERFORMED: Left upper extremity access revision (interposition and superficialization). ATTENDING SURGEON: Oscar Montiel MD [employer] HAND FINISHER SURGEON: Juan Antonio Felix ANESTHESIA: General. INDICATIONS FOR PROCEDURE: Mr. Montenegro is a 68-year-old gentleman with a left upper extremity fistula. He presented in August with a bleeding pseudoaneurysm, was repaired emergently. The scar tissue overlying this fistula is too dense and he said the dialysis center is having trouble accessing it. He is taken to the operating room for access revision. DESCRIPTION OF PROCEDURE: Informed consent was obtained from the patient. He was taken to the operating room and placed supine on the operating table. An appropriate timeout was taken to ensure the patient's identity, operative site and planned procedure. The administration of a gram of vancomycin was initiated prior to skin incision, will be discontinued after single preoperative dose. Vancomycin was chosen because of the patient's end-stage renal disease. Everyone in the room agreed with time out and we proceed. The left arm was prepped and draped. An incision made of the course of the fistula, carried down through subcutaneous tissue with electrocautery. The fistula was identified proximally, encircled with a vessel loop and then distally encircled with a vessel loop as well. The patient was then heparinized with 3000 units of IV heparin. The intervening segment was resected and the proximal and distal ends were spatulated, 6 mm PTFE was brought up onto the field, spatulated then sewn end-to-end proximally and distally with 5-0 Prolene suture. At completion, it was flushed and hemostatic. There was a nice thrill in the fistula and Doppler signal of the wrist. The heparin was reversed with Protamine. The wound was infiltrated with Marcaine and closed underneath the fistula with 2-0 Polysorb and on top of the fascia with 3-0 Polysorb and 4-0 Monocryl. The sponge and needle counts were correct at the end of the case. I was present and scrubbed for the entire procedure. MD KVNG Osborne/ELISABETH , 04:49 PM , 05:09 PM [email or web address]
[2018-02-03] MEDS ORDERED: SODIUM CHLOR 0.9% 1000 ML INJ 1,000 ML OTHER PRN ×2 (08:44)
[2018-02-03] MEDS ORDERED: SODIUM CHLOR 0.9% 1000 ML INJ 1,000 ML IV PRN (08:44)
[2018-02-03] MEDS ORDERED: ACETAMINOPHEN 325 MG TAB PO PRN (08:45)
[2018-02-03] MEDS ORDERED: GELATIN 12 MM/7 MM FOAM TOP PRN (08:45)
[2018-02-03] MEDS ORDERED: NITROGLYCERIN 0.4 MG SL 25 TABS/BTL SL PRN (08:45)
[2018-02-03] MEDS ORDERED: SODIUM CHLORIDE 0.9% FLUSH 10 ML FLUSH IV FLUSH PRN (08:45)
[2018-02-03] MEDS ORDERED: HEPARIN SODIUM - IV 10,000 UNITS/10 ML VIAL IV FLUSH PRN (08:45)
[2018-02-03] MEDS ORDERED: cloNIDine HCL 0.1 MG TAB PO PRN (08:45)
[2018-02-03] MEDS ORDERED: MANNITOL 12.5 GM/50 ML VIAL IV PRN (08:45)
[2018-02-03] MEDS ORDERED: GENTAMICIN SULFATE 20 MG/2 ML VIAL OTHER PRN (08:45)
[2018-02-03] MEDS ORDERED: ALBUMIN 25% INJ 100 ML IV PRN (08:45)
[2018-02-03] MEDS ORDERED: HEPARIN SODIUM - IV 10,000 UNITS/10 ML VIAL PRN (08:45)
[2018-02-03] MEDS ORDERED: FAMOTIDINE 20 MG TAB PO SCH (09:00)
[2018-02-03] MEDS: FAMOTIDINE 20 MG TAB PO SCH (09:00)
--- NOTE | 2018-02-03 09:59 | PD.VS.PN ---
Subjective POD #: 1 Procedure(s): L UE AVF revision (excision and interposition with PTFE) Superficialization Subjective/Hospital Course Pt s/p L UE access revision Pt denied hand pain UE warm w/ motor intact + thrill near L UE AVF Pt endorsed nausea w/o vomiting this am Pt denied abdominal pain Pt eating breakfast this am reports a decrease in appetite Objective Vitals/I&O Date Time Temp Pulse Resp B/P (MAP) Pulse Ox O2 Delivery O2 Flow Rate FiO2 02/03/18 08:00 74 02/03/18 04:00 97.4 81 18 112/58 (76) 95 02/03/18 00:00 97.6 74 19 120/58 (78) 97 02/02/18 20:00 97.5 77 17 118/58 (78) 93 02/02/18 18:30 97.6 75 20 113/55 (74) 95 Room Air 02/02/18 18:15 75 20 113/55 (74) 94 02/02/18 18:00 72 14 110/55 (73) 96 02/02/18 17:45 73 17 111/55 (73) 96 02/02/18 17:30 72 15 114/59 (77) 95 02/02/18 17:15 76 20 93/51 (65) 95 02/02/18 17:05 97.6 77 18 103/52 (69) 99 Room Air 02/02/18 12:04 98.7 86 20 120/79 (93) 98 02/03/18 02/03/18 02/03/18 07:00 15:00 23:00 Intake Total 240 ml Output Total 0 ml Balance 240 ml Exam: GENERAL: A&Ox3,NAD,GCS15 SKIN: UE Warm and dry w/ motor intact L UE with mild post operative swelling Incision to L UE w/o R/D GASTROINTESTINAL: Abdomen soft, non-tender, nondistended. + thrill near L UE AVF Laboratory Laboratory Tests Test 02/02/18 12:23 02/03/18 06:04 White Blood Count 11.6 Red Blood Count 4.72 Hemoglobin 13.2 Hematocrit 41.5 Mean Corpuscular Volume 88.0 Mean Corpuscular Hemoglobin 27.9 Mean Corpuscular Hemoglobin Concent 31.7 Red Cell Distribution Width 16.5 Platelet Count 256 Mean Platelet Volume 8.0 Neutrophils (%) (Auto) 74.0 Lymphocytes (%) (Auto) 12.5 Monocytes (%) (Auto) 10.3 Eosinophils (%) (Auto) 2.0 Basophils (%) (Auto) 1.2 Neutrophils # (Auto) 8.6 Lymphocytes # (Auto) 1.4 Monocytes # (Auto) 1.2 Eosinophils # (Auto) 0.2 Basophils # (Auto) 0.1 CBC Comment DIFF FINAL Differential Comment Prothrombin Time 10.4 Prothromb Time International Ratio 1.0 Blood Urea Nitrogen 50 62 Creatinine 10.19 11.54 Random Glucose 89 105 Calcium Level 9.9 9.4 Sodium Level 138 137 Potassium Level 5.7 6.8 Chloride Level 104 104 Carbon Dioxide Level 23.7 20.0 Anion Gap 10 13 Estimat Glomerular Filtration Rate 5 4 Assessment and Plan Assessment: (1) AVF (arteriovenous fistula) (2) ESRD (end stage renal disease) Status: Chronic Plan 68/M S/P L UE access revision Doing well w/o c/o hand pain Pain controlled UE warm w/ motor intact Pt c/o nausea w/o vomiting Plan Pt to HD today Continue pain control Continue antiemetic PRN for nausea Leave incision open to air D/C planning (tomorrow am) Berenice Thomson NP [facility] [phone] Discharge Planning D/C planning tomorrow am (POD 2) Family [phone] Berenice Thomson Feb 03, 2018 09:59
[2018-02-03] MEDS: SEVELAMER CARBONATE 800 MG TAB PO PRN ×2 (13:40→17:35)
--- NOTE | 2018-02-03 14:10 | PD.CONS ---
[facility] Service Nephrology Consult Requested By Reason for Consult ESRD on HD Primary Care Physician Jose Burt MD History of Present Illness Mr. Montenegro is a 68 y/o male admitted as observation for planned AVF superficialization in his left upper extremity. In August 2017 he had spontaneous bleed from pseudoaneurysm requiring emergent vascular surgery by Dr. Montiel. He has been using a Perm cath for dialysis in the clinic. He dialyzes MWF. His potassium is high today at 6.8, is due for treatment today. Seen during dialysis, he is reporting nausea and is actively vomiting despite antiemetic therapy. We were consulted for dialysis management.PMH listed below, he is a full code this admission. (Kassie Adkins) Review of Systems Constitutional: COMPLAINS OF: Fatigue Respiratory: DENIES: Shortness of breath Cardiovascular: DENIES: Chest pain, Dyspnea on Exertion, Lower Extremity Edema Gastrointestinal: COMPLAINS OF: Nausea, Vomiting, DENIES: Abdominal pain, Constipation, Diarrhea Musculoskeletal: COMPLAINS OF: Muscle aches, Stiffness (Kassie Adkins ) Past Family Social History Allergies: Coded Allergies: No Known Allergies (Unverified , 02/02/18) Past Medical History ESRD on hemodialysis MWF Hypertension Obesity Anemia Metabolic bone disorder Chronic right foot fracture wears a boot for this chronically(Charcot's foot) Anxiety Neuropathy Past Surgical History Left upper extremity AV graft Left upper extremity AV fistula 6 years ago, failed Perm cath placement Reported Medications Percocet (Oxycodone-Acetaminophen) 5-325 mg Tab 1 Tab PO Q4H PRN Xanax (Alprazolam) 0.5 Mg Tab 0.5 Mg PO Q4H PRN Pepcid (Famotidine) 40 Mg Tab 40 Mg PO DAILY Aspirin 81 Mg Chew 81 Mg CHEW DAILY Renvela (Sevelamer Carbonate) 800 Mg Tab 3,200 Mg PO TIDPC Renvela (Sevelamer Carbonate) 800 Mg Tab 2,400 Mg PO QID QID WITH SNACKS Neurontin (Gabapentin) 300 Mg Cap 300 Mg PO DAILY Active Ordered Medications Current Medications Medications (Trade) Dose Ordered Sig/Parrish Route Start Time Stop Time Status Last Admin Lactated Ringer's 1,000 ml @ 30 mls/hr Q24H PRN IV 02/02/18 11:45 02/05/18 11:44 Sodium Chloride 500 ml @ 30 mls/hr [id number] PRN IV 02/02/18 11:45 02/05/18 11:44 02/02/18 12:31 (Lopressor) 25 mg REPRODUCTION TECHNICIAN PRN PO 02/02/18 11:45 02/05/18 11:44 (Betadine 5% Antisepsis Kit) 1 applic REPRODUCTION TECHNICIAN PRN EACH NARE 02/02/18 11:45 02/05/18 11:44 02/02/18 12:19 (Chlorhexidine 2% Cloth) 3 pack REPRODUCTION TECHNICIAN PRN TOPICAL 02/02/18 11:45 02/05/18 11:44 02/02/18 12:18 (NovoLIN R INJ) See Protocol Table ... REPRODUCTION TECHNICIAN PRN SQ 02/02/18 11:45 02/05/18 11:44 (Roxicodone) 5 mg Q4H PRN PO 02/02/18 16:45 02/03/18 05:34 (Dilaudid) 2 mg Q4H PRN PO 02/02/18 16:45 (Heparin Inj) 5,000 units Q8HR SQ 02/02/18 22:00 (Saida-Colace) 1 tab BID PO 02/02/18 21:00 02/03/18 08:00 (Senokot) 17.2 mg Q12H PRN PO 02/02/18 16:45 (Dulcolax Supp) 10 mg DAILY PRN RECTAL 02/02/18 16:45 (Lactulose Liq) 30 ml DAILY PRN PO 02/02/18 16:45 (Aspirin Chew) 81 mg DAILY CHEW 02/03/18 09:00 02/03/18 08:00 (Neurontin) 300 mg DAILY PO 02/03/18 09:00 02/03/18 08:00 Miscellaneous Information ALL NURSING DEPARTME... UNSCH PRN .XX 02/02/18 17:12 02/03/18 17:11 (Ambien) 5 mg HS PRN PO 02/02/18 20:45 02/02/18 23:08 Ondansetron HCl 6 mg/Sodium Chloride 53 ml @ 212 mls/hr Q6H PRN IV 02/02/18 20:45 (Renvela) 2,400 mg QID PRN PO 02/02/18 20:45 02/03/18 13:40 (Zofran Inj) 4 mg Q6H PRN IV 02/03/18 05:45 (Pepcid) 20 mg DAILY PO 02/03/18 09:00 Sodium Chloride 1,000 ml @ 0 mls/hr Q0M PRN OTHER 02/03/18 08:44 (Heparin Inj) 8,000 units UNSCH PRN IV FLUSH 02/03/18 08:45 Sodium Chloride 1,000 ml @ 200 mls/hr Q5H PRN IV 02/03/18 08:44 Sodium Chloride 1,000 ml @ 0 mls/hr Q0M PRN OTHER 02/03/18 08:44 (Mannitol Inj) 12.5 gm UNSCH PRN IV 02/03/18 08:45 Albumin Human 100 ml @ 60 mls/hr UNSCH PRN IV 02/03/18 08:45 (NS Flush) 5 ml UNSCH PRN IV FLUSH 02/03/18 08:45 (Heparin Inj) UNSCH PRN .XX 02/03/18 08:45 (Gentamicin Inj) 20 mg UNSCH PRN OTHER 02/03/18 08:45 (Zofran Inj) 4 mg UNSCH PRN IV PUSH 02/03/18 08:45 (Tylenol) 650 mg UNSCH PRN PO 02/03/18 08:45 (Benadryl) 25 mg UNSCH PRN PO 02/03/18 08:45 (Nitrostat Sl) 0.4 mg UNSCH PRN SL 02/03/18 08:45 (Catapres) 0.1 mg UNSCH PRN PO 02/03/18 08:45 (Gelfoam 12 Mm/7 Mm Top) 1 foam UNSCH PRN TOP 02/03/18 08:45 (Renvela) 800 mg TIDAC PO 02/03/18 12:00 02/03/18 13:39 Family History Non contributory Social History Non smoker, no ETOH He is Retired airline pilot Full code (Kassie Adkins) Physical Exam Vital Signs Vital Signs Date Time Temp Pulse Resp B/P (MAP) Pulse Ox O2 Delivery O2 Flow Rate FiO2 02/03/18 08:00 97.4 76 17 108/62 (77) 97 02/03/18 08:00 74 02/03/18 04:00 97.4 81 18 112/58 (76) 95 02/03/18 00:00 97.6 74 19 120/58 (78) 97 02/02/18 20:00 97.5 77 17 118/58 (78) 93 02/02/18 18:30 97.6 75 20 113/55 (74) 95 Room Air 02/02/18 18:15 75 20 113/55 (74) 94 02/02/18 18:00 72 14 110/55 (73) 96 02/02/18 17:45 73 17 111/55 (73) 96 02/02/18 17:30 72 15 114/59 (77) 95 02/02/18 17:15 76 20 93/51 (65) 95 02/02/18 17:05 97.6 77 18 103/52 (69) 99 Room Air Physical Exam GENERAL: This is an obese,well-developed patient, seen during dialysis, actively vomiting SKIN: No rashes, ecchymoses or lesions. Cool and dry. Left upper extremity AV fistula dressed with good thrill and bruit HEAD: Atraumatic. Normocephalic. No temporal or scalp tenderness. EYES: PERRLA Extraocular motions intact. No scleral icterus. No injection or drainage. ENT: Nose without bleeding, purulent drainage or septal hematoma. Throat without erythema, tonsillar hypertrophy or exudate. Uvula midline. Airway patent. NECK: Trachea midline. No JVD or lymphadenopathy. Supple, nontender, no meningeal signs. CARDIOVASCULAR: Regular rate and rhythm without murmurs, gallops, or rubs. RESPIRATORY: CTA bilaterally Breath sounds equal bilaterally. No wheezes, rales , or rhonchi. GASTROINTESTINAL: obese, Abdomen soft, NT/ND. No guarding. MUSCULOSKELETAL: Extremities without clubbing, cyanosis, or edema. No joint tenderness, effusion, or edema noted. No calf tenderness. Negative Homans sign bilaterally. Right lower extremity chronic fracture wears a boot NEUROLOGICAL: Awake and alert. Cranial nerves II through XII intact. Motor and sensory grossly within normal limits. 5/5 strength in all muscle groups. Normal speech. LUE: incision red, no drainage; AVG with thrill/bruit Laboratory Laboratory Tests Test 02/03/18 06:04 Blood Urea Nitrogen 62 Creatinine 11.54 Random Glucose 105 Calcium Level 9.4 Sodium Level 137 Potassium Level 6.8 Chloride Level 104 Carbon Dioxide Level 20.0 Anion Gap 13 Estimat Glomerular Filtration Rate 4 (Kassie Adkins) Result Diagram: 02/02/18 1223 02/03/18 0604 Assessment and Plan Problem List: (1) ESRD (end stage renal disease) ICD Codes: N18.6 - End stage renal disease Status: Chronic Plan: Seen during dialysis today on a 1K, 300 BFR, goal 3L Hyperkalemic, see below Repeat labs in AM Avoid IVF High protein diet ordered Using PermCath for HD Outpatient arrangements in place for discharge purposes Midodrine as needed, uses in outpatient setting PRN. (2) Hyperkalemia ICD Codes: E87.5 - Hyperkalemia Plan: Dialysis on a 1K Repeat labs Low K diet ordered (3) Metabolic bone disease ICD Codes: E88.9 - Metabolic disorder, unspecified; M90.80 - Osteopathy in diseases classified elsewhere, unspecified site Plan: Renvela ordered with meals (Kassie Adkins) Assessment and Plan patient was seen and examined during dialysis. Hyperkalemia is noted, he was dialyzed on 1K. Vomiting is noted. No abdominal pain. Continue observation. Symptomatic management. (Efrem Bernard MD) Kassie Adkins Feb 03, 2018 14:10 Efrem Bernard MD Feb 03, 2018 21:30
[2018-02-03] MEDS: ZOLPIDEM TARTRATE 5 MG TAB PO PRN (22:47)
[2018-02-03] MEDS: diphenhydrAMINE HCL 25 MG CAP PO PRN (22:49)
[2018-02-04] VITALS: BP 99/57; PULSE 81; RESP 22; TEMP 97.6; O2SAT 96
[2018-02-04 00:17] VITALS: PULSE 80
[2018-02-04] MEDS: HEPARIN SODIUM - SQ 10,000 UNITS/ML VIAL SQ SCH (01:41)
[2018-02-04 01:45] VITALS: PULSE 87
[2018-02-04] MEDS: HYDROmorphone HCL 2 MG TAB PO PRN ×2 (03:37→08:51)
[2018-02-04 04:00] VITALS: BP 109/57; PULSE 70; RESP 20; TEMP 97.8; O2SAT 95
[2018-02-04 08:00] VITALS: BP 100/58; PULSE 76; RESP 18; TEMP 97.5; O2SAT 97
[2018-02-04 08:25] LABS: ALBUMIN 2.9 GM/DL (3.4-5.0); BICARBONATE 26.7 MEQ/L (21.0-32.0); CREATININE 9.44 MG/DL (0.60-1.30); PHOSPHORUS 6.6 MG/DL (2.5-4.9)
--- NOTE | 2018-02-04 08:29 | HHI.NPPN ---
Subjective Interval History Hyperkalemia has improved. Chronic hypotension. Objective Data Data Vital Signs Date Time Temp Pulse Resp B/P (MAP) Pulse Ox O2 Delivery O2 Flow Rate FiO2 02/04/18 08:00 97.5 76 18 100/58 (72) 97 02/04/18 04:00 97.8 70 20 109/57 (74) 95 02/04/18 01:45 87 02/04/18 00:35 18 02/04/18 00:17 80 02/04/18 00:00 97.6 81 22 99/57 (71) 96 02/03/18 20:00 83 02/03/18 20:00 97.7 88 20 96/59 (71) 97 02/03/18 17:39 96 21 02/03/18 16:00 97.8 96 17 81/51 (61) 96 02/03/18 12:00 97.7 103 16 83/57 (66) 95 -: 02/02/18 1223 02/04/18 0641 Physical Exam General Appearance: Comfortable Appearance Remarks obese. Neck Neck Exam: Neck Supple Pulmonary Resp Exam: Clear Bilaterally Cardiology CV Exam: Regular Gastrointestinal/Abdomen GI Exam: Soft Integumentary Skin Exam: Intact Neurologic Neuro Exam: Moving All Extremities Assessment/Plan Problem List: (1) ESRD (end stage renal disease) ICD Codes: N18.6 - End stage renal disease Status: Chronic Plan: Dialysis will be MWF. Monitor fluid and electrolytes. (2) Hyperkalemia ICD Codes: E87.5 - Hyperkalemia Plan: Resolved. (3) Metabolic bone disease ICD Codes: E88.9 - Metabolic disorder, unspecified; M90.80 - Osteopathy in diseases classified elsewhere, unspecified site Plan: Renvela ordered with meals Plan He can be discharged if abdominal symptoms have resolved and if he is tolerating oral intake. Efrem Bernard MD Feb 04, 2018 08:29
[2018-02-04 08:47] VITALS: PULSE 82
[2018-02-04] MEDS: FAMOTIDINE 20 MG TAB PO SCH (08:50)
[2018-02-04] MEDS: SEVELAMER CARBONATE 800 MG TAB PO SCH (08:50)
[2018-02-04] MEDS: DOCUSATE SODIUM 50 MG/SENNA 8.6 MG TAB PO SCH (08:50)
[2018-02-04] MEDS: diphenhydrAMINE HCL 25 MG CAP PO PRN (08:51)
[2018-02-04] MEDS: ASPIRIN 81 MG CHEW TAB CHEW SCH (08:51)
[2018-02-04] MEDS: GABAPENTIN 300 MG CAP PO SCH (08:51)
[2018-02-04] MEDS: SEVELAMER CARBONATE 800 MG TAB PO PRN (08:59)
--- NOTE | 2018-02-04 09:00 | PD.VS.DC ---
Discharge Summary Admission Date: Feb 02, 2018 at 16:47 Discharge Date: Feb 04, 2018 Admission Diagnosis: (1) AVF (arteriovenous fistula) (2) ESRD (end stage renal disease) Discharge Diagnosis: (1) AVF (arteriovenous fistula) ICD Codes: I77.0 - Arteriovenous fistula, acquired (2) ESRD (end stage renal disease) ICD Codes: N18.6 - End stage renal disease Status: Chronic Brief History from admission 68 yo male with ESRD and multiple L UE AVF who presented in Aug 2017 with bleeding AVF; taken to OR emergently for interposition/pseudoaneurysm repair Procedure(s): L UE AVF revision (excision and interposition with PTFE) Superficialization Significant Findings GENERAL: A&Ox3,NAD,GCS15 SKIN: UE Warm and dry w/ motor intact L UE with mild post operative swelling Incision to L UE w/o R/D GASTROINTESTINAL: Abdomen soft, non-tender, nondistended. + thrill near L UE AVF Laboratory Tests Test 02/02/18 12:23 02/03/18 06:04 02/04/18 06:41 White Blood Count 11.6 TH/MM3 (4.0-11.0) Mean Corpuscular Hemoglobin Concent 31.7 % (32.0-36.0) Neutrophils (%) (Auto) 74.0 % (16.0-70.0) Monocytes (%) (Auto) 10.3 % (0.0-8.0) Neutrophils # (Auto) 8.6 TH/MM3 (1.8-7.7) Monocytes # (Auto) 1.2 TH/MM3 (0-0.9) Blood Urea Nitrogen 50 MG/DL (7-18) 62 MG/DL (7-18) 51 MG/DL (7-18) Creatinine 10.19 MG/DL (0.60-1.30) 11.54 MG/DL (0.60-1.30) 9.44 MG/DL (0.60-1.30) Potassium Level 5.7 MEQ/L (3.5-5.1) 6.8 MEQ/L (3.5-5.1) Estimat Glomerular Filtration Rate 5 ML/MIN (>89) 4 ML/MIN (>89) 6 ML/MIN (>89) Carbon Dioxide Level 20.0 MEQ/L (21.0-32.0) Albumin 2.9 GM/DL (3.4-5.0) Phosphorus Level 6.6 MG/DL (2.5-4.9) Hospital Course: 68 yo male with ESRD and multiple L UE AVF Pt w/ a PMH of (Aug 2017) a bleeding AVF; taken to OR emergently for interposition/pseudoaneurysm repair Hx of a Failing L UE AVF Pt s/p L UE AVF revision (excision and interposition with PTFE), superficialization POD #: 1 Pt denied hand pain UE warm w/ motor intact + thrill near L UE AVF Pt endorsed nausea w/o vomiting this am Pt denied abdominal pain Pt eating breakfast this am reports a decrease in appetite POD #: 2 Pt denied hand pain UE warm w/ motor intact + thrill near proximal end of L UE AVF Pt DENIED nausea/ vomiting Pt denied abdominal pain Pt reported eating breakfast this am w/o difficulty Pt clear for d/c Arranged out pt follow up Allergies Coded Allergies Type Severity Reaction Last Updated Verified No Known Allergies 02/02/18 No 02/02/18 02/02/18 02/03/18 02/03/18 02/04/18 02/04/18 05:59 17:59 05:59 17:59 05:59 17:59 Intake Total 600 ml 240 ml 360 ml 360 ml Output Total 50 ml 0 ml 3000 ml Balance 550 ml 240 ml -3000 ml 360 ml 360 ml Intake Oral 240 ml 360 ml 360 ml Other 600 ml Output Urine Total 0 ml Hemodialysis 3000 ml Estimated Blood Loss 50 ml # Voids 0 0 # Bowel Movements 0 0 Laboratory Tests Test 02/02/18 12:23 02/03/18 06:04 02/04/18 06:41 White Blood Count 11.6 TH/MM3 Red Blood Count 4.72 MIL/MM3 Hemoglobin 13.2 GM/DL Hematocrit 41.5 % Mean Corpuscular Volume 88.0 FL Mean Corpuscular Hemoglobin 27.9 PG Mean Corpuscular Hemoglobin Concent 31.7 % Red Cell Distribution Width 16.5 % Platelet Count 256 TH/MM3 Mean Platelet Volume 8.0 FL Neutrophils (%) (Auto) 74.0 % Lymphocytes (%) (Auto) 12.5 % Monocytes (%) (Auto) 10.3 % Eosinophils (%) (Auto) 2.0 % Basophils (%) (Auto) 1.2 % Neutrophils # (Auto) 8.6 TH/MM3 Lymphocytes # (Auto) 1.4 TH/MM3 Monocytes # (Auto) 1.2 TH/MM3 Eosinophils # (Auto) 0.2 TH/MM3 Basophils # (Auto) 0.1 TH/MM3 CBC Comment DIFF FINAL Differential Comment Prothrombin Time 10.4 SEC Prothromb Time International Ratio 1.0 RATIO Blood Urea Nitrogen 50 MG/DL 62 MG/DL 51 MG/DL Creatinine 10.19 MG/DL 11.54 MG/DL 9.44 MG/DL Random Glucose 89 MG/DL 105 MG/DL 80 MG/DL Calcium Level 9.9 MG/DL 9.4 MG/DL 9.0 MG/DL Sodium Level 138 MEQ/L 137 MEQ/L 137 MEQ/L Potassium Level 5.7 MEQ/L 6.8 MEQ/L 4.4 MEQ/L Chloride Level 104 MEQ/L 104 MEQ/L 99 MEQ/L Carbon Dioxide Level 23.7 MEQ/L 20.0 MEQ/L 26.7 MEQ/L Anion Gap 10 MEQ/L 13 MEQ/L 11 MEQ/L Estimat Glomerular Filtration Rate 5 ML/MIN 4 ML/MIN 6 ML/MIN Albumin 2.9 GM/DL Phosphorus Level 6.6 MG/DL Orders Procedure Category Date Status Time Complete Blood Count LAB 02/02/18 Complete With Diff 11:31 Basic Metabolic Panel LAB 02/02/18 Complete (Bmp) 11:31 Prothrombin Time / LAB 02/02/18 Complete Inr (Pt) 11:31 Type And Screen BBK 02/02/18 Complete 11:31 Lactated Ringer's MED 02/02/18 In Process 1000 Ml Inj (Lr 1000 M 11:45 Sodium Chlorid 0.9% MED 02/02/18 In Process 500 Ml Inj (Ns 500 M 11:45 Metoprolol Tartrate MED 02/02/18 In Process (Lopressor) 11:45 Povidone Iod 5% MED 02/02/18 In Process Antisepsis Kit 11:45 Chlorhexidine 2% MED 02/02/18 In Process Cloth (Chlorhexidine 11:45 Insulin Human Regular MED 02/02/18 In Process Inj (Novolin R Inj 11:45 Protamine Sulfate Inj MED 02/02/18 Complete (Protamine Sulfate 13:56 Heparin Inj (Heparin MED 02/02/18 Complete Inj) 13:56 Bupivacaine Pf 0.5% MED 02/02/18 Complete Inj (Marcaine Pf 0.5 13:56 Vancomycin Inj MED 02/02/18 Complete (Vancomycin Inj) 13:57 Thrombin Top Megargel MED 02/02/18 Complete (Thrombin Top Megargel) 13:57 Heparin-Ns/Pf Inj MED 02/02/18 Complete (Heparin-Ns/Pf Inj) 13:57 Place In Observation ADMITTING 02/02/18 Transmitted Code Status CODE 02/02/18 Transmitted 16:44 Vital Signs (Adult) MINNIE 02/02/18 In Process 16:44 Nurse Obgyn / MINNIE 02/02/18 In Process Telemetry 16:44 Activity Oob Ad Kenia MINNIE 02/02/18 In Process 16:44 Precautions MINNIE 02/02/18 In Process 16:44 Basic Metabolic Panel LAB 02/03/18 Complete (Bmp) 06:00 Consult Nephrology CONS 02/02/18 Transmitted Famotidine (Pepcid) MED 02/02/18 Complete 21:00 Oxycodone (Roxicodone) MED 02/02/18 In Process 16:45 Hydromorphone MED 02/02/18 In Process (Dilaudid) 16:45 Heparin Inj (Heparin MED 02/02/18 In Process Inj) 22:00 Docusate Sodium-Senna MED 02/02/18 In Process (Saida-Colace) 21:00 Sennosides (Senokot) MED 02/02/18 In Process 16:45 Bisacodyl Supp MED 02/02/18 In Process (Dulcolax Supp) 16:45 Lactulose Liq MED 02/02/18 In Process (Lactulose Liq) 16:45 Scd Bilateral/Knee MINNIE 02/02/18 In Process High 16:44 Aspirin Chew (Aspirin MED 02/03/18 In Process Chew) 09:00 Gabapentin (Neurontin) MED 02/03/18 In Process 09:00 Sevelamer (Renvela) MED 02/02/18 Complete 18:00 Sevelamer (Renvela) MED 02/02/18 Complete 18:30 Famotidine (Pepcid) MED 02/03/18 Complete 09:00 Sugammadex Inj MED 02/02/18 Complete (Bridion Inj) 16:56 *Morphine Inj MED 02/02/18 Complete (*Morphine Inj 17:14 Fentanyl Inj MED 02/02/18 Complete (Fentanyl Inj) 17:17 Midazolam Inj (Versed MED 02/02/18 Complete Inj) 17:18 (Hub Use Only)Inp Phy CONS 02/02/18 Transmitted Cons/Ref Patient Transfer ADMITTING 02/02/18 Transmitted *Morphine Inj MED 02/02/18 Complete (*Morphine Inj 18:10 Misc Nursing MED 02/02/18 Complete Information 17:12 Ondansetron Inj MED 02/02/18 Complete (Zofran Inj) 19:30 Class Iv Pacu Ea 30 [facility] 02/02/18 [facility] Complete Ondansetron Inj MED 02/02/18 Complete (Zofran Inj) 20:15 Zolpidem (Ambien) MED 02/02/18 In Process 20:45 Ondansetron Inj MED 02/02/18 In Process (Zofran Inj) 20:45 Sevelamer (Renvela) MED 02/02/18 In Process 20:45 Ondansetron Inj MED 02/03/18 Complete (Zofran Inj) 01:45 Ondansetron Inj MED 02/03/18 In Process (Zofran Inj) 05:45 Famotidine (Pepcid) MED 02/03/18 In Process 09:00 Blood Flow Rate MINNIE 02/03/18 In Process 08:44 Dialysate Flow Rate MINNIE 02/03/18 In Process 08:44 Dialyzer MINNIE 02/03/18 In Process 08:44 Concentrate MINNIE 02/03/18 In Process 08:44 Acid Concentrate MINNIE 02/03/18 In Process 08:44 Length Of Dialysis MINNIE 02/03/18 In Process 08:44 Frequency Of Dialysis MINNIE 02/03/18 In Process 08:44 Dialysis Obtain MINNIE 02/03/18 In Process 08:44 Needle Size MINNIE 02/03/18 In Process 08:44 Dialysis Schedule MINNIE 02/03/18 In Process 08:44 Resp Oxygen Dalton C RSP 02/03/18 Logged Titrat 1-4 L Dialysis Weight MINNIE 02/03/18 In Process 08:44 ^ Obtain As Needed MINNIE 02/03/18 In Process 08:44 Sodium Chlor 0.9% MED 02/03/18 In Process 1000 Ml Inj (Ns 1000 M 08:44 Heparin Inj (Heparin MED 02/03/18 In Process Inj) 08:45 Sodium Chlor 0.9% MED 02/03/18 In Process 1000 Ml Inj (Ns 1000 M 08:44 Sodium Chlor 0.9% MED 02/03/18 In Process 1000 Ml Inj (Ns 1000 M 08:44 Mannitol Inj MED 02/03/18 In Process (Mannitol Inj) 08:45 Albumin 25% Inj MED 02/03/18 In Process (Albumin 25% Inj) 08:45 Sodium Chloride 0.9% MED 02/03/18 In Process Flush (Ns Flush) 08:45 Heparin Inj (Heparin MED 02/03/18 In Process Inj) 08:45 Gentamicin Inj MED 02/03/18 In Process (Gentamicin Inj) 08:45 Ondansetron Inj MED 02/03/18 In Process (Zofran Inj) 08:45 Acetaminophen MED 02/03/18 In Process (Tylenol) 08:45 Diphenhydramine MED 02/03/18 In Process (Benadryl) 08:45 Nitroglycerin Sl MED 02/03/18 In Process (Nitrostat Sl) 08:45 Clonidine (Catapres) MED 02/03/18 In Process 08:45 Gelatin 12 Mm/7 Mm MED 02/03/18 In Process Top (Gelfoam 12 Mm/7 08:45 Sevelamer (Renvela) MED 02/03/18 In Process 12:00 Sodium Chlorid 0.9% MED 02/02/18 Complete 500 Ml Inj (Ns 500 M 12:00 Lidocaine Pf 1% Inj MED 02/02/18 Complete (Xylocaine-Mpf 1% In 12:00 Rocuronium Inj MED 02/02/18 Complete (Zemuron Inj) 12:00 Neostigmine Inj MED 02/02/18 Complete (Prostigmine Inj) 12:00 Glycopyrrolate Inj MED 02/02/18 Complete (Robinul Inj) 12:00 Phenyleph/Ns 1000 MED 02/02/18 Complete Mcg/10ml Syr (Neosynep 12:00 Ephedrine/Ns 25 Mg/5 MED 02/02/18 Complete Ml Syr (Ephedrine/N 12:00 Dexamethasone Inj MED 02/02/18 Complete (Decadron Inj) 12:00 Ondansetron Inj MED 02/02/18 Complete (Zofran Inj) 12:00 Propofol 200 Mg/20 Ml MED 02/02/18 Complete Inj (Diprivan 200 12:00 Am Admit Pre Op Care [facility] 02/02/18 Complete Renal Functional Panel LAB 02/04/18 Complete 06:00 Diet Renal DIET 02/03/18 Transmitted Dinner Attending Discharge DISCHARGE 02/04/18 Transmitted Order Vital Signs Date Time Temp Pulse Resp B/P (MAP) Pulse Ox O2 Delivery O2 Flow Rate FiO2 02/04/18 08:00 97.5 76 18 100/58 (72) 97 02/04/18 04:00 97.8 70 20 109/57 (74) 95 02/04/18 01:45 87 02/04/18 00:35 18 02/04/18 00:17 80 02/04/18 00:00 97.6 81 22 99/57 (71) 96 02/03/18 20:00 83 02/03/18 20:00 97.7 88 20 96/59 (71) 97 02/03/18 17:39 96 21 02/03/18 16:00 97.8 96 17 81/51 (61) 96 02/03/18 12:00 97.7 103 16 83/57 (66) 95 02/03/18 08:00 97.4 76 17 108/62 (77) 97 02/03/18 08:00 74 02/03/18 04:00 97.4 81 18 112/58 (76) 95 02/03/18 00:00 97.6 74 19 120/58 (78) 97 02/02/18 20:00 97.5 77 17 118/58 (78) 93 02/02/18 18:30 97.6 75 20 113/55 (74) 95 Room Air 02/02/18 18:15 75 20 113/55 (74) 94 02/02/18 18:00 72 14 110/55 (73) 96 02/02/18 17:45 73 17 111/55 (73) 96 02/02/18 17:30 72 15 114/59 (77) 95 4/17/18 17:15 76 20 93/51 (65) 95 02/02/18 17:05 97.6 77 18 103/52 (69) 99 Room Air 02/02/18 12:04 98.7 86 20 120/79 (93) 98 Discharge Condition: Good Discharge Disposition: Discharge Home Discharge Instructions: DIET You may resume your dialysis diet ACTIVITY Activity as tolerated (LEFT Upper Extremity) NO heavy lifting over a gallon of milk for 1W - LEFT upper extremity NO blood pressure readings or lab draws to your LEFT upper extremity WOUND CARE Leave your incision open to air Do not apply any creams or ointments to your incision as it may loosen the surgical glue Call the office to report any increased redness, drainage or painful swelling You may shower then pat dry the incision site MEDICATIONS You may resume your home medications Your were prescribed a narcotic pain medication- This may cause constipation- Take with an over the counter stool softener Your were prescribed a narcotic pain medication- This may cause drowsiness- No driving while taking this medication Any questions or concerns: Call [facility] [phone] Berenice Thomson Feb 04, 2018 09:00
--- NOTE | 2018-02-04 09:29 | PD.VS.PN ---
Subjective POD #: 2 Procedure(s): L UE AVF revision (excision and interposition with PTFE) Superficialization Subjective/Hospital Course Pt s/p L UE access revision Pt denied hand pain UE warm w/ motor intact + thrill near proximal end of L UE AVF Pt DENIED nausea/ vomiting Pt denied abdominal pain Pt reported eating breakfast this am w/o difficulty Objective Vitals/I&O Date Time Temp Pulse Resp B/P (MAP) Pulse Ox O2 Delivery O2 Flow Rate FiO2 02/04/18 08:00 97.5 76 18 100/58 (72) 97 02/04/18 04:00 97.8 70 20 109/57 (74) 95 02/04/18 01:45 87 02/04/18 00:35 18 02/04/18 00:17 80 02/04/18 00:00 97.6 81 22 99/57 (71) 96 02/03/18 20:00 83 02/03/18 20:00 97.7 88 20 96/59 (71) 97 02/03/18 17:39 96 21 02/03/18 16:00 97.8 96 17 81/51 (61) 96 02/03/18 12:00 97.7 103 16 83/57 (66) 95 02/04/18 02/04/18 02/04/18 06:59 14:59 22:59 Intake Total 360 ml Balance 360 ml Exam: GENERAL: A&OX3,NAD,GCS 15 SKIN: UE Warm and dry w/ motor intact + thrill near proximal end of L UE AVF Pt w/o hand pain Incisions: L UE incision intact w/o R/D Mild post operative swelling present (L UE) Laboratory Laboratory Tests Test 02/04/18 06:41 Blood Urea Nitrogen 51 Creatinine 9.44 Random Glucose 80 Albumin 2.9 Calcium Level 9.0 Phosphorus Level 6.6 Sodium Level 137 Potassium Level 4.4 Chloride Level 99 Carbon Dioxide Level 26.7 Anion Gap 11 Estimat Glomerular Filtration Rate 6 Assessment and Plan Assessment: (1) AVF (arteriovenous fistula) (2) ESRD (end stage renal disease) Status: Chronic Plan 68/M S/P L UE access revision Doing well w/o c/o hand pain Pain controlled UE warm w/ motor intact Pt W/O nausea/vomiting Reviewed am labs Plan Discussed and reviewed post operative care and management w/ pt Questions answered Pt clear for D/C this am Arranged out pt follow up Berenice Thomson NP [facility] [phone] Discharge Planning D/C planning tomorrow am (POD 2) Family [phone] Berenice Thomson Feb 04, 2018 09:28
[2018-02-04] MEDS ORDERED: OXYC1CAP PO (09:30)
== END 2018-02-04 10:54 | disposition home or self-care (01) ==
LOC: HSDC 11:15 → HSDI 16:47 → N07A 18:57
PROVIDERS: ADMIT Surgery; ATTEND Surgery
DX: T82.590A Other mechanical complication of surgically created arteriovenous fistula, initial encounter (principal); N18.6 End stage renal disease; I12.0 Hypertensive chronic kidney disease with stage 5 chronic kidney disease or end stage renal disease; D63.1 Anemia in chronic kidney disease; E87.5 Hyperkalemia; R11.2 Nausea with vomiting, unspecified; E88.89 Other specified metabolic disorders; G62.9 Polyneuropathy, unspecified; M14.679 Charcot's joint, unspecified ankle and foot; F41.9 Anxiety disorder, unspecified; Z99.2 Dependence on renal dialysis
CPT/HCPCS: 01844; 36832; 80048; 80069; 85025; 85610; 86850; 86900; 86901; 96374; C1768; G0257; G0378; J1100; J1644; J2250; J2270; J2370; J2405; J2710; J2720; J3010; J3370; J7040; 90935